=== PATIENT | female | born 1995 | race Caucasian/White ===

== ENCOUNTER 2018-07-06 23:25 | Emergency (ER) | payer MEDICAID, SELFPAY ==
[2018-07-06 23:31] VITALS: BP 117/67; PULSE 110; RESP 18; TEMP 36.7; O2SAT 98
[2018-07-06 23:47] LABS: Bilirubin Negative (Negative); Blood Large (Negative); Clarity Clear; Glucose Negative (Negative); Ketones Negative (Negative); Leukocyte Esterase Small (Negative); Nitrite Positive (Negative); Urobilinogen 0.2 EU/dL (Up TO 0.2); pH 6.5 (5-8)
[2018-07-07 00:01] LABS: *AMPHETAMINES SCREEN URINE Negative (Negative); *BARBITURATES SCREEN URINE Negative (Negative); *BENZODIAZEPINES SCREEN URINE Negative (Negative); Cannabinoids THC POSITIVE (Negative); Cocaine Screen,Urine Negative (Negative); METHADONE URINE SCREEN Negative (Negative); OPIATES URINE SCREEN Negative (Negative)
--- NOTE | 2018-07-07 00:03 | ED.GENADUL_ITS ---
Disposition Clinical Impression: Bacterial vaginosis, Urinary tract infection Condition: Good Instructions: Urinary Tract Infection in Women (ED) Additional Instructions: Please take antibiotics as prescribed. Follow-up with regular doctor for recheck this week. Please do not abuse alcohol. Prescriptions: MetroNIDAZOLE [Flagyl] 500 mg PO BID #14 tab Sulfameth/Trimeth Ds [Bactrim Ds Tablet] 1 each PO BID #14 tab Medical Decision Making - Lab Data Laboratory Results - last 24 hr 07/06/18 07/06/18 07/06/18 23:35 23:35 23:59 WBC RBC Hgb Hct MCV MCH MCHC RDW Plt Count MPV Immature Gran % Neutrophils % Lymphocytes % Monocytes % Eosinophils % Basophils % Absolute Neutrophils Absolute Lymphocytes Absolute Monocytes Absolute Eosinophils Absolute Basophils Sodium 140 Potassium 3.6 Chloride 105 Carbon Dioxide 26.5 Anion Gap 8.5 BUN 8 Creatinine 0.74 Estimated GFR/1.73 m2 >= 60.00 Glucose 109 H Calcium 8.9 Total Bilirubin 0.3 AST 17 ALT 12 Alkaline Phosphatase 86 Total Protein 8.2 Albumin 4.1 TSH 1.67 Beta HCG, Quant Urine Color Straw Urine Clarity Clear Urine pH 6.5 Ur Specific [place] 1.010 Urine Protein Negative Urine Ketones Negative Urine Blood Large H Urine Nitrite Positive H Urine Bilirubin Negative Urine Urobilinogen 0.2 Ur Leukocyte Esterase Small H Urine RBC 20-50 H Urine WBC 5-10 Ur Epithelial Cells Few Urine Crystals Negative Urine Bacteria Many Urine Casts Negative Urine Mucus Negative Urine Other Few trichomonas Ur Culture Indicated? Yes Urine Glucose Negative Salicylates Urine Opiates Screen Negative Urine Methadone Screen Negative Acetaminophen Ur Barbiturates Screen Negative Ur Tricyclics Screen Negative Ur Amphetamines Screen Negative U Benzodiazepines Scrn Negative Urine Cocaine Screen Negative Ur THC Screen Positive Ethyl Alcohol 133.4 07/06/18 07/06/18 07/06/18 23:59 23:59 23:59 WBC 9.42 RBC 4.95 Hgb 14.9 Hct 43.2 MCV 87.3 MCH 30.1 MCHC 34.5 RDW 15.2 H Plt Count 266 MPV 9.7 Immature Gran % 0.2 Neutrophils % 78.7 Lymphocytes % 16.8 Monocytes % 3.5 Eosinophils % 0.5 Basophils % 0.3 Absolute Neutrophils 7.41 H Absolute Lymphocytes 1.58 Absolute Monocytes 0.33 Absolute Eosinophils 0.05 Absolute Basophils 0.03 Sodium Potassium Chloride Carbon Dioxide Anion Gap BUN Creatinine Estimated GFR/1.73 m2 Glucose Calcium Total Bilirubin AST ALT Alkaline Phosphatase Total Protein Albumin TSH Beta HCG, Quant 1 Urine Color Urine Clarity Urine pH Ur Specific [place] Urine Protein Urine Ketones Urine Blood Urine Nitrite Urine Bilirubin Urine Urobilinogen Ur Leukocyte Esterase Urine RBC Urine WBC Ur Epithelial Cells Urine Crystals Urine Bacteria Urine Casts Urine Mucus Urine Other Ur Culture Indicated? Urine Glucose Salicylates 5.2 Urine Opiates Screen Urine Methadone Screen Acetaminophen < 2 L Ur Barbiturates Screen Ur Tricyclics Screen Ur Amphetamines Screen U Benzodiazepines Scrn Urine Cocaine Screen Ur THC Screen Ethyl Alcohol Results reviewed for labs ordered during visit: Yes - Medical Decision Making 22-year-old female presents with mental health worker for suicidality. She is afebrile, at rest her heart rates unremarkable but was slightly elevated at triage. She admits to alcohol use today. Medical screening examination including laboratory analysis performed. Urine positive for nitrites and leukoesterase. Many bacteria. Positive trichomonas. Alcohol 133. CBC unremarkable, chemistries reassuring. Beta hCG quant is 1 ( negative range). Patient will require treatment for UTI and bacterial vaginosis. Will treat with Bactrim and Flagyl. She was observed over approximately 6 hours time, alcohol was metabolized, seen by mental health screeners and plan for safety was established outpatient setting. History of Present Illness - General Chief complaint: PsychEval Stated complaint: EVAL Time Seen by Provider: 07/06/18 23:39 Source: patient, RN notes reviewed Mode of arrival: ambulatory Limitations: no limitations - History of Present Illness Initial comments: Depression: 22-year-old female presents with [facility] services stating that she has had days of active suicidality that is been moderate to severe and associated with depression. Began in the wake of a breakup with her boyfriend. States he has been drinking alcohol including liquor today. She states her last menstrual period was 1 month plus ago. She had outpatient positive test. -: days(s) Quality: other Consistency: constant Improves with: none Worsens with: none Treatments Prior to Arrival: none - Related Data Sertraline [Zoloft] 100 mg PO .QHS 03/02/18 TraZODone [Desyrel] 50 mg PO .QHS 03/02/18 Dicyclomine [Bentyl] 20 mg PO Q6H PRN #10 tab 05/30/18 Promethazine [Phenergan] 25 mg PO Q6H PRN #10 tab 05/30/18 MetroNIDAZOLE [Flagyl] 500 mg PO BID #14 tab 07/07/18 Sulfameth/Trimeth Ds [Bactrim Ds Tablet] 1 each PO BID #14 tab 07/07/18 Allergies Allergy/AdvReac Type Severity Reaction Status Date / Time ibuprofen AdvReac Unknown Hives Unverified 07/06/18 23:46 Review of Systems Other: 8 systems reviewed, otherwise negative Past Medical History - Past Medical History Learning disabilities, wrist fracture with nonunion Surgical history: appendectomy, other (Left wrist) Family history: other (Blood clots) - Social History Alcohol use: none Drug use: marijuana General Exam - General Limitations: no limitations General appearance: alert, in no apparent distress, other (Odor of alcohol) - Head Head exam: Present: atraumatic, normocephalic - Eye Eye exam: Present: PERRL, EOMI - ENT ENT exam: Present: normal exam, normal external ear exam - Neck Neck exam: Present: normal inspection, full ROM. Absent: tenderness - Respiratory Respiratory exam: Present: normal lung sounds bilaterally. Absent: respiratory distress, chest wall tenderness - Cardiovascular Cardiovascular Exam: Present: regular rate, normal rhythm - GI/Abdominal GI/Abdominal exam: Present: soft. Absent: distended, tenderness - Extremities Exam Extremities exam: Present: normal inspection, full ROM, normal capillary refill - Neurological Exam Neurological exam: Present: alert, oriented X3 - Psychiatric Psychiatric exam: Present: flat affect, suicidal ideation - Skin Skin exam: Present: warm, dry, intact Course Vital Signs - 24 hr 07/06/18 23:31 Temperature 36.7 C Pulse 110 H Respiratory 18 Rate Blood Pressure 117/67 Pulse Oximetry 98
[2018-07-07 00:08] LABS: Abs Immature Grans 0.02 k/cumm (0.0-0.09); Absolute Basophil Count 0.03 k/cumm (0.0-0.2); Absolute Eosinophil Count 0.05 k/cumm (0.0-0.7); Absolute Lymphocyte Count 1.58 k/cumm (1.2-3.4); Absolute Monocyte Count 0.33 k/cumm (0.11-0.7); Absolute Neutrophil Count 7.41 k/cumm (1.2-6.7); Basophils % 0.3; Eosinophils % 0.5; HCT 43.2 % (36.0-46.0); HGB 14.9 g/dL (12.0-15.5); Immature Grans % 0.2; Lymphocytes % 16.8; Mean Corp. HGB Concentration 34.5 g/dL (32.0-36.0); Mean Corpuscular Hemoglobin 30.1 pg (27.0-33.0); Mean Corpuscular Volume 87.3 fL (80-95); Mean Platelet Volume 9.7 fL (8.0-11.0); Monocytes % 3.5; Neutrophils % 78.7; Platelet Count 266 x1000/uL (130-400); RBC 4.95 m/cumm (4.00-5.20); RBC Distribution Width 15.2 % (11.7-14.6); White Blood Cell Count 9.42 k/cumm (4.4-10.8)
[2018-07-07 00:11] LABS: Tricyclic Antidepressants Negative (Negative)
[2018-07-07 00:24] LABS: Bacteria Many HPF (Negative); Casts Negative LPF (Negative); Crystals Negative HPF (Negative); Epithelial Cells Few HPF (Negative); Mucus Negative (Negative); RBC 20-50 (0-2)
--- NOTE | 2018-07-07 00:24 | NUR.NOTE ---
Nursing Note: Pt has guardian who is mother, Helen. According to Pat (pt's worker who accompanied into ED), mother has been contacted. She has not yet arrived. Pat states she will leave her phone number for contact in the event that something changes with pt.
[2018-07-07 00:25] LABS: C & S Indicated? Yes
[2018-07-07 00:26] LABS: Salicylate 5.2 mg/dL (2.8-20.0)
[2018-07-07 00:28] LABS: Acetaminophen < 2 ug/mL (10-30)
--- NOTE | 2018-07-07 00:28 | NUR.NOTE ---
Nursing Note: attempted to call both phone numbers listed for mother(guardian) initial phone number answered by female who states this is not a valid number for Helen. Left generic message at second phone number, which was a voicemail with a male's voice recording.
[2018-07-07 00:36] LABS: ALT 12 U/L (12-78); AST 17 U/L (15-37); Albumin 4.1 g/dL (3.4-5.0); Alkaline Phosphatase 86 U/L (46-116); Anion Gap 8.5 mmol/L (3-11); BUN 8 mg/dL (7-18); Bilirubin, Total 0.3 mg/dL (0.2-1.0); CO2 26.5 mmol/L (21.0-32.0); CREATININE 0.74 mg/dL (0.55-1.02); Calcium 8.9 mg/dL (8.5-10.1); Chloride 105 mmol/L (98-107); ETHANOL BLOOD 133.4 mg/dL (<3); Glucose 109 mg/dL (70-100); Potassium 3.6 mmol/L (3.5-5.1); Sodium 140 mmol/L (136-145); TSH 1.67 uIU/mL (0.358-3.74); Total Protein 8.2 g/dL (6.4-8.2)
[2018-07-07 00:53] LABS: HCG Quant, Pregnancy 1 mIU/mL (1-3)
--- NOTE | 2018-07-07 04:31 | NUR.NOTE ---
Nursing Note: mental health worker umer martinez arrived and is in with the pt
[2018-07-07] MEDS: Sulfameth/Trimeth DS TAB 1 TAB PO (04:46)
--- NOTE | 2018-07-07 04:56 | ERMH_ITS ---
Presenting issue: [sucidal ideation] *How did they arrive here at ER and why did they come: [Patient had been drinking brought in by human resources operations manager Pat, she has been saying she wants to , she is suicidal] Precipitating Factors: [patient stated to this clinician it started when her uncle killed himself, she told doctor it was because of breakup with boyfriend.] *Assessment of Safety SI / HI- (Address delusions if pertaining to the SI/ HI) [Patient says she wants to and thinks of it a lot when she is drinking. She states she does not want to kill herself today, she is now sober. She emphatically says she is not going to try to commit suicide today and is safe to go home] Disposition: [] *Behavior: [alert, oriented] *Eye Contact: [good] *Mood: [euthymic] *Affect: [full range] *Appetite: [okay] *Sleep (trouble falling/staying asleep): [no problem] Plan: (please elaborate and include that physician is consulted with plan and/ or placement): [Patient wants to go home and agrees to call if she feels desperately suicidal, however she has an appointment with her therapist Deann Connelyl at noon , she is very happy about that and will talk to her about her feelings. She is a client of [facility] at [facility] and has support. Joselupe Infante from [facility] was contacted and agreed with the plan to call Pat her worker to come and pick her up. ] Provisional Diagnosis:(only if required by physician): [] AXIS 5 Case Handover: Done with ED nurse (name): [] Date & Time [] Huddle: done with ED staff (for boarding clients): [] Yes [x] No Date/Time [] Referral for Case management: Has phone call for introduction been made [] Yes [x] No Referral in EMR: Done and sent? [] Yes [x] NO Clinicians Name and title and Signature: [Katie Nelson, [facility], [facility] Emergency Services Clinician] Make sure that you are photocopying and submitting this to [facility] records dept.to be scanned into chart
[2018-07-07 06:19] VITALS: BP 104/52; PULSE 81; RESP 16; O2SAT 97
== END 2018-07-07 06:22 ==
PROVIDERS: Emergency Provider Emergency Medicine; PCP Internal Medicine
DX: N39.0 Urinary tract infection, site not specified (principal); B96.20 Unspecified Escherichia coli [E. coli] as the cause of diseases classified elsewhere; N76.0 Acute vaginitis; B96.89 Other specified bacterial agents as the cause of diseases classified elsewhere; F32.9 Major depressive disorder, single episode, unspecified; R45.851 Suicidal ideations; F10.129 Alcohol abuse with intoxication, unspecified; Y90.6 Blood alcohol level of 120-199 mg/100 ml
CPT/HCPCS: 80053; 80307; 87077; 99285; 80320; 80329; 81003; 81015; 84443; 84702; 85025; 87086; 87186; 99284

== ENCOUNTER 2018-08-07 18:26 | Emergency (ER) | payer MEDICAID, SELFPAY ==
[2018-08-07 18:36] VITALS: BP 113/59; PULSE 87; RESP 12; TEMP 36.9; O2SAT 96
[2018-08-07 18:52] LABS: Bilirubin Negative (Negative); Blood Small (Negative); Clarity Clear; Glucose Negative (Negative); Ketones Negative (Negative); Leukocyte Esterase Negative (Negative); Nitrite Negative (Negative); Specific Gravity 1.015 (1.005-1.025); pH 7.5 (5-8)
[2018-08-07 19:05] LABS: Epithelial Cells Many HPF (Negative); RBC 0-2 (0-2)
[2018-08-07 19:06] LABS: Bacteria Few HPF (Negative); C & S Indicated? No/Sq. Contamination; Casts Negative LPF (Negative); Mucus Negative (Negative)
[2018-08-07 19:07] LABS: Other Cells Rare Yeast (Negative)
[2018-08-07 20:13] LABS: Abs Immature Grans 0.03 k/cumm (0.0-0.09); Absolute Basophil Count 0.02 k/cumm (0.0-0.2); Absolute Monocyte Count 0.55 k/cumm (0.11-0.7); Basophils % 0.2; Eosinophils % 0.8; HCT 43.6 % (36.0-46.0); HGB 14.9 g/dL (12.0-15.5); Immature Grans % 0.2; Lymphocytes % 11.4; Mean Corp. HGB Concentration 34.2 g/dL (32.0-36.0); Mean Corpuscular Hemoglobin 30.7 pg (27.0-33.0); Mean Corpuscular Volume 89.9 fL (80-95); Monocytes % 4.5; Neutrophils % 82.9; Platelet Count 219 x1000/uL (130-400); RBC 4.85 m/cumm (4.00-5.20); RBC Distribution Width 14.9 % (11.7-14.6)
[2018-08-07 20:47] LABS: ALT 13 U/L (12-78); AST 15 U/L (15-37); Albumin 4.1 g/dL (3.4-5.0); Alkaline Phosphatase 89 U/L (46-116); Anion Gap 8.6 mmol/L (3-11); BUN 3 mg/dL (7-18); Bilirubin, Total 0.4 mg/dL (0.2-1.0); CO2 28.4 mmol/L (21.0-32.0); CREATININE 0.77 mg/dL (0.55-1.02); Chloride 102 mmol/L (98-107); Glucose 78 mg/dL (70-100); Lipase 72 U/L (73-393); Potassium 3.5 mmol/L (3.5-5.1); Sodium 139 mmol/L (136-145)
[2018-08-07 21:23] LABS: Bilirubin Negative (Negative); Blood Negative (Negative); Clarity Clear; Glucose Negative (Negative); Ketones Negative (Negative); Leukocyte Esterase Negative (Negative); Nitrite Negative (Negative); Urobilinogen 0.2 EU/dL (Up TO 0.2)
[2018-08-07] MEDS: Ondansetron 4 MG/2 ML VIAL IVP (21:23)
--- NOTE | 2018-08-07 21:44 | ED.GENADUL_ITS ---
Discharge Plan Disposition Patient Disposition: HOME Condition: Improving Discharge Details Chief Complaint: Abd Prob Clinical Impression: Abdominal pain Primary Care Provider: Marko Shirley ED Provider: Rosa Cortez Home Meds and New Rx's Prescriptions: Continue trazodone 50 MG tablet 50 mg PO .QHS RF: 0 sertraline 100 MG tablet 100 mg PO .QHS RF: 0 Discharge Instructions Instructions: Abdominal Pain (ED) Additional Instructions: Drink at least 6-8 glasses of water to stay well-hydrated Return tomorrow morning for your ultrasound as scheduled you will need an appointment with [facility] for the next day or 2. Return to the emergency department sooner for new or worsening symptom Referrals: [facility] [Provider Group] - 1 day Medical Decision Making Patient presents with periumbilical abdominal. She has had no similar history in the past. States her last bowel movement was. Having some nausea and vomiting. Last menstrual period was 1 month ago. States she is not sexually active. UPT was negative. IV line established routine abdominal workup initiated. Patient given sodium chloride with Zofran [address] abdomen and pelvis ordered. After receiving Zofran and a liter of fluid patient symptoms are improved and almost resolved she has no fevers vital signs are stable she is tolerating p.o.. Her repeat abdominal exam is benign. she is stable for discharge to home and will receive a abdominal pelvic ultrasound tomorrow morning. Case management will schedule follow-up appointment with [facility] hopefully within a day or 2. Imaging Data Radiologic Study: Imaging: CT Scan Lab Data Lab results reviewed: Yes I reviewed the patient's lab results. Patient presents with abdominal pain that started yesterday morning, states her last menstrual period was 1 month ago and that she is due to start, denies fevers states she has had nausea vomiting no diarrhea last bowel movement was today she reported normal bowel. Denies recent sick contacts with similar symptoms. HPI General Date/Time Provider Initiated Documentation: 08/07/18 18:45 . Related Data Home Medications Medication Instructions Recorded Confirmed sertraline 100 mg PO .QHS 03/02/18 08/07/18 trazodone 50 mg PO .QHS 03/02/18 08/07/18 Allergies Allergy/AdvReac Type Severity Reaction Status Date / Time ibuprofen AdvReac Unknown Hives Unverified 08/07/18 18:39 General Stated Complaint: Abd Prob KHARI: 3 Review of Systems Review of Systems All systems reviewed & are unremarkable except as noted in HPI and below Gastrointestinal Reports abdominal pain, Denies change in bowel habits, Reports nausea and Reports vomiting Genitourinary Denies dysuria, Denies pelvic pain and Denies vaginal discharge PFSH Family History Mother H/O blood clots Medical History Fracture of wrist with nonunion Social History Smoking/Tobacco Use Status: Current every day Surgical History Appendectomy (03/03/18) Exam Const General: cooperative, healthy appearing, comfortable and in distress mild Nutritional Appearance: average body habitus Orientation: alert, awake and oriented x3 HENMT Mouth: oral mucosae normal Chest Chest: normal inspection of the chest Resp Auscultation: clear to auscultation bilaterally Cardio Rate: regular rate Rhythm: regular rhythm GI Inspection: normal to inspection Palpation: soft, not firm, no guarding and tender periumbilically Auscultation: normal bowel sounds Skin General skin exam: no rashes or lesions noted Extrem General: normal to inspection and full ROM Course Vital Signs Temperature 36.9 C 08/07/18 18:36 Pulse 87 08/07/18 18:36 Respiratory Rate 12 08/07/18 18:36 Blood Pressure 113/59 L 08/07/18 18:36 Pulse Oximetry 96 08/07/18 18:36 Temperature 36.9 C 08/07/18 18:36 Temperature Source Temporal Artery Scan 08/07/18 18:36 Pulse 87 08/07/18 18:36 Respiratory Rate 12 08/07/18 18:36 Respiratory Effort 08/07/18 20:57 Blood Pressure 113/59 L 08/07/18 18:36 Pulse Oximetry 96 08/07/18 18:36 Oxygen Delivery Method Room Air 08/07/18 18:36 Oxygen Flow Rate 0 08/07/18 18:36 Pain Level 10 08/07/18 18:36 Lab/Test Results Lab/Test Results: Laboratory Tests Range/Units 08/07/18 08/07/18 08/07/18 18:43 20:07 20:07 WBC (4.4-10.8) k/cumm 12.30 H RBC (4.00-5.20) m/cumm 4.85 Hgb (12.0-15.5) g/dL 14.9 Hct (36.0-46.0) % 43.6 MCV (80-95) fL 89.9 MCH (27.0-33.0) pg 30.7 MCHC (32.0-36.0) g/dL 34.2 RDW (11.7-14.6) % 14.9 H Plt Count (130-400) x1000/uL 219 MPV (8.0-11.0) fL 10.0 Immature Gran % 0.2 Neutrophils % 82.9 Lymphocytes % 11.4 Monocytes % 4.5 Eosinophils % 0.8 Basophils % 0.2 Absolute Neutrophils (1.2-6.7) k/cumm 10.20 H Absolute Lymphocytes (1.2-3.4) k/cumm 1.40 Absolute Monocytes (0.11-0.7) k/cumm 0.55 Absolute Eosinophils (0.0-0.7) k/cumm 0.10 Absolute Basophils (0.0-0.2) k/cumm 0.02 Sodium (136-145) mmol/L 139 Potassium (3.5-5.1) mmol/L 3.5 Chloride (98-107) mmol/L 102 Carbon Dioxide (21.0-32.0) mmol/L 28.4 Anion Gap (3-11) mmol/L 8.6 BUN (7-18) mg/dL 3 L Creatinine (0.55-1.02) mg/dL 0.77 Estimated GFR/1.73 m2 (mL/min/1.73m2) >= 60.00 Glucose (70-100) mg/dL 78 Calcium (8.5-10.1) mg/dL 9.0 Total Bilirubin (0.2-1.0) mg/dL 0.4 AST (15-37) U/L 15 ALT (12-78) U/L 13 Alkaline Phosphatase (46-116) U/L 89 Total Protein (6.4-8.2) g/dL 8.0 Albumin (3.4-5.0) g/dL 4.1 Lipase (73-393) U/L 72 L Urine Color (Yellow) Yellow Urine Clarity Clear Urine pH (5-8) 7.5 Ur Specific [place] (1.005-1.025) 1.015 Urine Protein (Negative) mg/dL Negative Urine Ketones (Negative) mg/dL Negative Urine Blood (Negative) Small H Urine Nitrite (Negative) Negative Urine Bilirubin (Negative) Negative Urine Urobilinogen (Up TO 0.2) EU/dL 1.0 H Ur Leukocyte Esterase (Negative) Negative Urine RBC (0-2) 0-2 Urine WBC (0-5) HPF 5-10 Ur Epithelial Cells (Negative) HPF Many Urine Crystals (Negative) HPF Urine Bacteria (Negative) HPF Few Urine Casts (Negative) LPF Negative Urine Mucus (Negative) Negative Urine Other (Negative) Rare yeast Ur Culture Indicated? No/sq. contamination Urine Glucose (Negative) mg/dL Negative Range/Units 08/07/18 21:05 WBC (4.4-10.8) k/cumm RBC (4.00-5.20) m/cumm Hgb (12.0-15.5) g/dL Hct (36.0-46.0) % MCV (80-95) fL MCH (27.0-33.0) pg MCHC (32.0-36.0) g/dL RDW (11.7-14.6) % Plt Count (130-400) x1000/uL MPV (8.0-11.0) fL Immature Gran % Neutrophils % Lymphocytes % Monocytes % Eosinophils % Basophils % Absolute Neutrophils (1.2-6.7) k/cumm Absolute Lymphocytes (1.2-3.4) k/cumm Absolute Monocytes (0.11-0.7) k/cumm Absolute Eosinophils (0.0-0.7) k/cumm Absolute Basophils (0.0-0.2) k/cumm Sodium (136-145) mmol/L Potassium (3.5-5.1) mmol/L Chloride (98-107) mmol/L Carbon Dioxide (21.0-32.0) mmol/L Anion Gap (3-11) mmol/L BUN (7-18) mg/dL Creatinine (0.55-1.02) mg/dL Estimated GFR/1.73 m2 (mL/min/1.73m2) Glucose (70-100) mg/dL Calcium (8.5-10.1) mg/dL Total Bilirubin (0.2-1.0) mg/dL AST (15-37) U/L ALT (12-78) U/L Alkaline Phosphatase (46-116) U/L Total Protein (6.4-8.2) g/dL Albumin (3.4-5.0) g/dL Lipase (73-393) U/L Urine Color (Yellow) Yellow Urine Clarity Clear Urine pH (5-8) 7.0 Ur Specific [place] (1.005-1.025) 1.010 Urine Protein (Negative) mg/dL Negative Urine Ketones (Negative) mg/dL Negative Urine Blood (Negative) Negative Urine Nitrite (Negative) Negative Urine Bilirubin (Negative) Negative Urine Urobilinogen (Up TO 0.2) EU/dL 0.2 Ur Leukocyte Esterase (Negative) Negative Urine RBC (0-2) Urine WBC (0-5) HPF Ur Epithelial Cells (Negative) HPF Urine Crystals (Negative) HPF Urine Bacteria (Negative) HPF Urine Casts (Negative) LPF Urine Mucus (Negative) Urine Other (Negative) Ur Culture Indicated? Urine Glucose (Negative) mg/dL Negative POC- Test(urine) Negative
--- NOTE | 2018-08-07 21:45 | DI.CT_ITS ---
SYMPTOM/DIAGNOSIS: ABDOMINAL PAIN. CT ABDOMEN AND PELVIS: CT scan of the abdomen and pelvis was performed following the uneventful administration of intravenous contrast material. Comparison is 03/02/18 The liver is normal in size. No hepatic mass is seen. The appearance of the intrahepatic bile ducts is unchanged compared to the prior examination. The gallbladder is negative. No extrahepatic biliary ductal dilatation is seen. The portal and superior mesenteric veins are patent. The pancreas, spleen and adrenal glands are unremarkable. The kidneys show normal and symmetric enhancement. There are a few tiny hypodensities seen within the left kidney. They are too small for further characterization but likely reflect cysts.. The urinary bladder is intact and grossly unremarkable. It is underdistended. The reproductive organs are grossly unremarkable. The bowel shows no evidence of obstruction or inflammation. No findings to suggest an acute appendicitis are present. There are clips seen in the right lower quadrant. These appear to represent prior appendectomy that appears to have occurred since the prior examination from 03/02/18. The abdominal aorta is of normal caliber. There is no significant abdominal or pelvic adenopathy or pneumoperitoneum. There is a trace amount of free fluid in the pelvis which is likely physiologic. The bones are intact. IMPRESSION: No evidence of an acute abdomen. 2. Status post appendectomy. 3. Trace amount of free fluid in the pelvis which is likely physiologic.
[2018-08-07] MEDS: Omnipaque 350 MG/ML 100 ML BTL IJ (21:56)
--- NOTE | 2018-08-07 22:19 | DI.VRAD_ITS ---
EXAM: CT Abdomen and Pelvis With Intravenous Contrast EXAM DATE/TIME: 08/07/2018 8:02 PM CLINICAL HISTORY: 22 years old, female; Pain; Abdominal pain; Localized; Lower TECHNIQUE: Axial computed tomography images of the abdomen and pelvis with intravenous contrast. Coronal and sagittal reformatted images were created and reviewed. CONTRAST: 69 ml of Omnipaque 350 administered intravenously. COMPARISON: CT ABD PELVIS WITH CONTRAST 03/02/2018 5:25 PM FINDINGS: Lower thorax: Gas in the distal esophagus which can be seen with reflux. ABDOMEN: Liver: Intrahepatic ductal dilation versus periportal edema. Vague hypodensity near the falciform ligament. This is a good location for focal fat or a portal perfusion defect. Diagnosis can be confirmed with MRI. Gallbladder and bile ducts: No gallstones. Pancreas: Normal. No ductal dilation. Spleen: Normal. No splenomegaly. Adrenals: Normal. No mass. Kidneys and ureters: Too small to characterize hypodensities in the left kidney. No hydronephrosis. Stomach and bowel: There is wall prominence to the proximal stomach which can be seen secondary to under distention or gastritis in the appropriate clinical setting. Evaluation of the bowel is limited secondary to the lack of oral contrast. No evidence of bowel obstruction. Appendix: The appendix is not clearly seen. There is suture material in the right lower quadrant of the abdomen. Finding should be correlated with any history of appendectomy. PELVIS: Bladder: There is urinary bladder wall thickening which can be seen with infection or under distention. Reproductive: The uterus is present. A small amount of fluid is noted adjacent to the right uterus, series 5 image 65. The margins are somewhat rounded. A component of loculation is not excluded. There are fluid-filled structures in the region of the right adnexa favored to be related to fluid-filled loops of bowel. Superimposed abscesses or ovarian lesions would be difficult to exclude, given the lack of oral contrast. Given these findings, there may be a gynecologic source for the patient's pain. Ultrasound would be beneficial. ABDOMEN and PELVIS: Intraperitoneal space: No free air. Bones/joints: No acute fracture. No dislocation. Soft tissues: Unremarkable. Vasculature: Normal. No abdominal aortic aneurysm. Lymph nodes: Normal. No enlarged lymph nodes. IMPRESSION: 1.A small amount of fluid is noted adjacent to the right uterus. The margins are somewhat rounded. A component of loculation is not excluded. There are fluid-filled structures in the region of the right adnexa favored to be related to fluid-filled loops of bowel. Superimposed abscesses or ovarian lesions would be difficult to exclude, given the lack of oral contrast. Given these findings, there may be a gynecologic source for the patient's pain. Ultrasound would be beneficial. 2. Urinary bladder wall prominence which can be seen with infection or under distention. 3. The appendix is not clearly seen. There is suture material in the right lower quadrant of the abdomen. Finding should be correlated with any history of appendectomy. Other findings as above. Dictated and Authenticated by: Sally Giraldo MD. Ordering:SANDRA TORRES MD
[2018-08-07 23:02] VITALS: BP 119/72; PULSE 94; RESP 16; O2SAT 96
--- NOTE | 2018-08-08 09:15 | PDOC.ERCMPRO ---
Care Management Progress Note 08/08/18-Pt seen on 08/07/18 for abdominal pain by Rafael Cortez NP. F/U ultrasound request faxed to [facility].
== END 2018-08-07 23:01 | disposition home or self-care (01) ==
PROVIDERS: Emergency Provider Nurse Practitioner Acute Care; PCP Internal Medicine
DX: R10.33 Periumbilical pain (principal); R11.2 Nausea with vomiting, unspecified
CPT/HCPCS: 36415; 80053; 81025; 83690; 96374; 99285; 74177; 81003; 81015; 85025; 99284; J2405; J3490

== ENCOUNTER 2018-08-08 14:47 | Emergency (ER) | payer MEDICAID, SELFPAY ==
[2018-08-08 15:00] VITALS: BP 123/70; PULSE 98; RESP 16; TEMP 37.2; O2SAT 96
--- NOTE | 2018-08-08 16:38 | DI.US_ITS ---
SYMPTOM/DIAGNOSIS: LLQ PAIN PELVIC ULTRASOUND: 08/08 Pelvic ultrasound was performed transabdominally and transvaginally. Please see the accompanying data sheet for measurements of the pelvic structures. Minimal quantity of free pelvic fluid is noted which is nonspecific. Uterus and ovaries are unremarkable in appearance with a normal ovarian follicular appearance bilaterally. There is unremarkable vascular flow of the ovaries identified on Doppler evaluation. Limited scanning of the kidneys is unremarkable. CONCLUSION: Negative pelvic ultrasound.
[2018-08-08 17:04] LABS: Abs Immature Grans 0.01 k/cumm (0.0-0.09); Absolute Basophil Count 0.01 k/cumm (0.0-0.2); Absolute Eosinophil Count 0.12 k/cumm (0.0-0.7); Absolute Lymphocyte Count 0.83 k/cumm (1.2-3.4); Absolute Monocyte Count 0.46 k/cumm (0.11-0.7); Absolute Neutrophil Count 8.11 k/cumm (1.2-6.7); Basophils % 0.1; Eosinophils % 1.3; HGB 13.8 g/dL (12.0-15.5); Immature Grans % 0.1; Lactate-non-spesis 0.7 mmol/L (0.6-1.4); Lymphocytes % 8.7; Mean Corp. HGB Concentration 34.5 g/dL (32.0-36.0); Mean Corpuscular Hemoglobin 30.8 pg (27.0-33.0); Mean Corpuscular Volume 89.3 fL (80-95); Mean Platelet Volume 9.8 fL (8.0-11.0); Monocytes % 4.8; Platelet Count 186 x1000/uL (130-400); RBC 4.48 m/cumm (4.00-5.20); RBC Distribution Width 14.7 % (11.7-14.6); White Blood Cell Count 9.54 k/cumm (4.4-10.8)
[2018-08-08 17:19] LABS: ALT 13 U/L (12-78); AST 12 U/L (15-37); Albumin 3.7 g/dL (3.4-5.0); Alkaline Phosphatase 87 U/L (46-116); Anion Gap 9.4 mmol/L (3-11); BUN 3 mg/dL (7-18); Bilirubin, Total 0.4 mg/dL (0.2-1.0); CO2 27.6 mmol/L (21.0-32.0); CREATININE 0.72 mg/dL (0.55-1.02); Calcium 8.9 mg/dL (8.5-10.1); Chloride 103 mmol/L (98-107); Glucose 80 mg/dL (70-100); Potassium 3.4 mmol/L (3.5-5.1); Sodium 140 mmol/L (136-145); Total Protein 7.4 g/dL (6.4-8.2)
[2018-08-08] MEDS: Ketorolac 15 MG/ML VIAL IVP (17:37)
--- NOTE | 2018-08-08 18:15 | DI.VRAD_ITS ---
EXAM: US Pelvis Complete, Transabdominal US Pelvis, Transvaginal CLINICAL HISTORY: 22 years old, female; Pain; Abdominal pain; Left lower quadrant TECHNIQUE: Real-time transabdominal and transvaginal pelvic ultrasound (complete) with image documentation. Transvaginal imaging was used for better evaluation of the endometrium and adnexa. COMPARISON: CT ABDOMEN PELVIS W 08/07/2018 9:26 PM FINDINGS: Uterus/cervix: Uterus 7.2 x 1.9x 3.5 cm. Endometrium 1.3 mm. No myometrial mass. Right ovary: Right ovary 2.9 x 1.8 x 2.2 cm Peak systolic velocity right ovary 15 cm/s Normal blood flow. Left ovary: Left ovary 2.7 x 1.7 x 2.4 cm Peak systolic velocity left ovary 15 cm/s Normal blood flow. Free fluid: No free fluid. Bladder: Prevoid bladder volume 388 cubic centimeters Other findings: Right kidney 10.7 cm. No hydronephrosis Left kidney 10.1 cm. No hydronephrosis IMPRESSION: No acute findings. No evidence of torsion Dictated and Authenticated by: Luke Blackwell MD. Ordering:MOUNIKA STYLES MD
--- NOTE | 2018-08-08 18:41 | ED.GENADUL_ITS ---
Discharge Plan Disposition Patient Disposition: HOME Condition: Improving Discharge Details Chief Complaint: Abd Prob Clinical Impression: Abdominal pain Primary Care Provider: Marko Shirley ED Provider: Juvenal Walter Home Meds and New Rx's Prescriptions: New acetaminophen [Tylenol 8 Hour] 650 mg tablet extended release 650 mg PO Q8H PRN (Reason: pain) Qty: 30 RF: 0 Continue trazodone 50 MG tablet 50 mg PO .QHS RF: 0 sertraline 100 MG tablet 100 mg PO .QHS RF: 0 Discharge Instructions Instructions: Abdominal Pain (ED) Additional Instructions: Return to the emergency department for any new or worsening symptoms including high fevers, persistent vomiting, or further concerns. Otherwise take medication as prescribed and follow-up with your primary care provider if not improving next week. Referrals: Marko Shirley [Primary Care Provider] - 1 week (if not improving) Discharge Data Discharge Date/Time-TO BE ENTERED AT DEPARTURE: 08/08/18 19:18 Medical Decision Making Patient presenting to the emergency department for chief complaint of abdominal pain. Patient was seen yesterday in the emergency department and had full workup with no acute findings noted but concern for possible ovarian cyst. Patient states today pain became severe she had an episode of nausea with the discomfort. Patient appears uncomfortable but in no acute signs of distress but physical exam shows some significant left lower quadrant tenderness on exam. There is concern for possible ovarian torsion or cyst otherwise review of previous records shows that she had no acute findings. Plan to do ultrasound imaging of female anatomy along with labs. Pending results patient ordered IV fluids and ketorolac. Review of labs shows improvement of findings compared to yesterday's labs and ultrasound imaging shows no acute abnormalities noted including no torsion significant ovarian cyst. Patient was reassessed and stated improvement of symptoms after receiving Toradol. Patient has had no signs of vomiting and due to otherwise unremarkable labs I feel that she is able to be safely discharged to follow-up with her primary care provider next week. After discussion of diagnosis and plan of care patient is no further needs, questions, or concerns and states clear understanding to return to the emergency department for any worsening symptoms. HPI General Mode of arrival: ambulatory . Date/Time Provider Initiated Documentation: 08/08/18 16:21 . Limitations to Documentation: no limitations . Information obtained by: patient, RN notes reviewed and old records reviewed . History of Present Illness 22 year old F presents to the emergency department with the chief complaint of abd pain, described as severe and similar to prior episodes, with intensity rated at 9. Quality is described as sharp, and is localized to the abdomen. Patient started experiencing this day(s) (2) and it has been constant. No relieving factors improve symptom(s), No exacerbating factors reported . Patient did receive the following treatments prior to arrival, none Related Data Home Medications Medication Instructions Recorded Confirmed sertraline 100 mg PO .QHS 03/02/18 08/08/18 trazodone 50 mg PO .QHS 03/02/18 08/08/18 acetaminophen [Tylenol 8 Hour] 650 mg PO Q8H PRN #30 tab 08/08/18 Previous Rx's Medication Instructions Recorded acetaminophen [Tylenol 8 Hour] 650 mg PO Q8H PRN #30 tab 08/08/18 Allergies Allergy/AdvReac Type Severity Reaction Status Date / Time ibuprofen AdvReac Unknown Hives Unverified 08/08/18 15:21 General Stated Complaint: Abd Prob KHARI: 3 Review of Systems Constitutional Denies chills, Denies fever(s), Denies headache(s) and Reports poor appetite ENT Denies headache(s) Cardiovascular Denies chest pain and Denies dyspnea Respiratory Denies dyspnea Gastrointestinal Reports as per HPI, Reports abdominal pain, Denies melena, Denies change in bowel habits, Denies constipation, Denies diarrhea, Reports nausea and Denies vomiting Genitourinary Denies hematuria, Denies urinary incontinence, Denies urinary hesitancy and Denies urinary urgency Integumentary/Breasts Denies rash Neurologic Denies headache(s) PFSH Family History Mother H/O blood clots Medical History Fracture of wrist with nonunion Social History Smoking/Tobacco Use Status: Current every day Surgical History Appendectomy (03/03/18) Exam Const General: cooperative Orientation: alert, awake and oriented x3 Resp Effort & Inspection: normal respiratory effort and able to speak in complete sentences Auscultation: clear to auscultation bilaterally Cardio Rate: regular rate Rhythm: regular rhythm Heart Sounds: S1 normal and S2 normal GI Palpation: soft, no hepatosplenomegaly, not firm, guarding in the LLQ, no masses , no pulsatile masses, not rigid, no splenomegaly and tender in the LLQ; not at McBurney's point, Hogan's sign negative and Rovsing's sign negative Auscultation: normal bowel sounds Back/Spine/Pelvis Back: no CVA tenderness Neuro General: alert, awake, oriented x3, gait normal and moves all extremities Course Vital Signs Temperature 37.2 C 08/08/18 15:00 Pulse 98 H 08/08/18 15:00 Respiratory Rate 16 08/08/18 15:00 Blood Pressure 123/70 08/08/18 15:00 Pulse Oximetry 96 08/08/18 15:00 Temperature 37.2 C 08/08/18 15:00 Temperature Source Skin 08/08/18 15:00 Pulse 98 H 08/08/18 15:00 Respiratory Rate 16 08/08/18 15:00 Respiratory Effort 08/08/18 15:19 Blood Pressure 123/70 08/08/18 15:00 Pulse Oximetry 96 08/08/18 15:00 Oxygen Delivery Method Room Air 08/08/18 15:00 Oxygen Flow Rate 0 08/08/18 15:00 Pain Level 10 08/08/18 15:00 Comment 08/08/18 15:00 Lab/Test Results Lab/Test Results: Laboratory Tests Range/Units 08/08/18 08/08/18 08/08/18 16:56 16:56 16:56 WBC (4.4-10.8) k/cumm 9.54 RBC (4.00-5.20) m/cumm 4.48 Hgb (12.0-15.5) g/dL 13.8 Hct (36.0-46.0) % 40.0 MCV (80-95) fL 89.3 MCH (27.0-33.0) pg 30.8 MCHC (32.0-36.0) g/dL 34.5 RDW (11.7-14.6) % 14.7 H Plt Count (130-400) x1000/uL 186 MPV (8.0-11.0) fL 9.8 Immature Gran % 0.1 Neutrophils % 85.0 Lymphocytes % 8.7 Monocytes % 4.8 Eosinophils % 1.3 Basophils % 0.1 Absolute Neutrophils (1.2-6.7) k/cumm 8.11 H Absolute Lymphocytes (1.2-3.4) k/cumm 0.83 L Absolute Monocytes (0.11-0.7) k/cumm 0.46 Absolute Eosinophils (0.0-0.7) k/cumm 0.12 Absolute Basophils (0.0-0.2) k/cumm 0.01 Sodium (136-145) mmol/L 140 Potassium (3.5-5.1) mmol/L 3.4 L Chloride (98-107) mmol/L 103 Carbon Dioxide (21.0-32.0) mmol/L 27.6 Anion Gap (3-11) mmol/L 9.4 BUN (7-18) mg/dL 3 L Creatinine (0.55-1.02) mg/dL 0.72 Estimated GFR/1.73 m2 (mL/min/1.73m2) >= 60.00 Glucose (70-100) mg/dL 80 Lactate (0.6-1.4) mmol/L 0.7 Calcium (8.5-10.1) mg/dL 8.9 Total Bilirubin (0.2-1.0) mg/dL 0.4 AST (15-37) U/L 12 L ALT (12-78) U/L 13 Alkaline Phosphatase (46-116) U/L 87 Total Protein (6.4-8.2) g/dL 7.4 Albumin (3.4-5.0) g/dL 3.7
[2018-08-08 20:53] VITALS: BP 116/68; PULSE 94; RESP 18; TEMP 37; O2SAT 98
== END 2018-08-08 19:18 | disposition home or self-care (01) ==
PROVIDERS: Emergency Provider Nurse Practitioner Family; PCP Internal Medicine
DX: R10.32 Left lower quadrant pain (principal)
CPT/HCPCS: 76770; 80053; 81025; 96374; 99284; 76830; 76856; 83605; 85025; J1885

== ENCOUNTER 2018-08-14 13:38 | Outpatient (CLI) | payer MEDICAID, SELFPAY ==
--- NOTE | 2018-08-14 13:24 | DI.RAD_ITS ---
SYMPTOMS/DIAGNOSIS: PAIN RIGHT WRIST: Three views. No bone or joint abnormality is identified. The soft tissues are unremarkable. IMPRESSION: No acute abnormality.
== END 2018-08-14 13:58 ==
PROVIDERS: PCP Internal Medicine; Visit Provider Orthopaedic Surgery
DX: M25.531 Pain in right wrist (principal)
CPT/HCPCS: 73110

== ENCOUNTER 2018-09-12 09:33 | Outpatient (CLI) | payer MEDICAID, SELFPAY | END 2018-09-12 09:53 | PROVIDERS: PCP Internal Medicine; Visit Provider Orthopaedic Surgery | DX: M25.531 Pain in right wrist (principal); Z01.818 Encounter for other preprocedural examination ==

== ENCOUNTER 2018-09-17 10:52 | Day surgery (SDC) | payer MEDICAID, SELFPAY ==
--- NOTE | 2018-09-12 10:27 | HPE_ITS ---
Date of service: 09/12/18 Time of Service: 10:24 Assessment and Plan (1) Right wrist pain: Current visit: Yes Status: Acute The patient will undergo a right ulna shortening osteotomy under general anesthesia on 09/17/2018 for her distal ulna impaction syndrome to relieve pressure on her triangular fibrocartilage. The basic anatomy and surgical procedure are reviewed with Corrie as well as complications and typical follow-up course all questions are answered. History of Present Illness Chief Complaint: ulnar wrist pain Narrative: corrie relates a 1 month history of atraumatic right ulnar lateral wrist discomfort that has not been relieved with conservative management of bracing, and Depo-Medrol injection and Tylenol, Aleve. Following the injection in the office she initially noted good relief of her discomfort but this was very short-lived and did not provide any long-lasting effect. 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 Surgical intervention was recommended to relieve her pain Pertinent Surgical Information Denies previous medical history of: stroke, TIA, SD, use of sublingual nitroglycerin, GERD, seizures, diabetes, thyroid disease, sleep apnea, liver disease, hepatitis, hematologic disorders Denies previous complications from surgery or anesthesic agents with respect to high fever, prolonged vomiting and difficulty waking up Review of Systems Review of Systems All systems reviewed & are unremarkable except as noted in HPI and below Constitutional Denies fever(s) and Denies headache(s) ENT Denies headache(s) Cardiovascular Denies chest pain, Denies chest pain with activity, Denies palpitations, Denies dyspnea on exertion, Denies orthopnea and Denies paroxysmal nocturnal dyspnea Respiratory Denies dyspnea on exertion and Denies wheezing Gastrointestinal Denies abdominal pain, Denies melena, Denies hematochezia, Denies nausea and Denies vomiting Genitourinary Denies hematuria, Denies urinary frequency and Denies dysuria Comments: Denies burning sensation with urination Musculoskeletal Reports as per HPI Neurologic Denies headache(s) Psychiatric Denies anxiety and Denies depression Endocrine Denies palpitations Comments: Denies any unplanned weight changes Allergic/Immunologic Denies wheezing Meds Home Medications Medication Instructions Recorded Confirmed Type sertraline 100 mg PO .QHS 03/02/18 09/12/18 History trazodone 50 mg PO .QHS 03/02/18 09/12/18 History Depo-Medrol 40 mg/mL suspension 40 mg IU ONCE #1 ml NS 08/14/18 09/11/18 Clinic for injection acetaminophen 325 mg PO Q6H PRN 09/12/18 09/12/18 History Allergies Allergy/AdvReac Type Severity Reaction Status Date / Time ibuprofen AdvReac Unknown Hives Unverified 09/12/18 10:16 Exam Const General: cooperative HENMT Throat: posterior oropharynx normal Eyes General: appearance normal, both eyes and all related structures Conjunctivae: conjunctivae normal Sclera: sclerae normal Neck Neck: no JVD Carotids: normal carotid upstroke and no bruits Resp Effort & Inspection: normal respiratory effort and able to speak in complete sentences Auscultation: clear to auscultation bilaterally, no rales, no rhonchi and no wheezes Cardio Rate: regular rate Heart Sounds: S1 normal, S2 normal and no murmurs Bruits: no abdominal aortic bruits Other: Patient has focal tenderness over her distal ulna with pain on radial and ulnar deviation of her wrist. Palpating her triangular fibrocartilage region causes the pain she has been troubled by. She only has minimal pain with wrist dorsiflexion.her little finger extensor tendon is intact. she has normal neurovascular status distally. GI Palpation: soft and no hepatosplenomegaly Auscultation: normal bowel sounds General: No CVA tenderness Extrem General: no pedal edema Other: Normal sensation to light touch No web space cracks or splits noted
[2018-09-17] VITALS (8 sets, daily range): BP systolic 96–120; BP diastolic 55–72; PULSE 87–104; RESP 15–23; TEMP 36.4–36.8; O2SAT 95–98
--- NOTE | 2018-09-17 10:46 | DI.RAD_ITS ---
SYMPTOM/DIAGNOSIS: RT DISTAL ULNA IMPACTION SYNDROME, PAIN RIGHT WRIST: The images were obtained through a fiberglass splint and reveal a fracture of the distal ulna. Plate and compression screw device in place. There is excellent apposition and alignment at the fracture site. No previous images were extant at the time of this interpretation.
[2018-09-17] MEDS: Lactated Ringers 1,000 ML 80 ML IV (12:02)
--- NOTE | 2018-09-17 14:40 | PDOC.DSDIS_ITS ---
Discharge Plan Disposition Patient Disposition: HOME Condition: Good Discharge Details Reason For Visit: ULNAR WRIST PAIN (R) Attending Provider: Jose Fierro Primary Care Provider: Marko Shirley Home Meds and New Rx's Prescriptions: New hydrocodone-acetaminophen 5-325 mg tablet 1 tab PO Q6H PRN (Reason: pain) Qty: 20 RF: 0 Continue methylprednisolone acetate [Depo-Medrol] 40 mg/mL suspension 40 mg IU ONCE Qty: 1 RF: 0 trazodone 50 MG tablet 50 mg PO .QHS RF: 0 sertraline 100 MG tablet 100 mg PO .QHS RF: 0 acetaminophen 325 mg Capsule 325 mg PO Q6H PRNRF: 0 Discharge Instructions Additional Instructions: Elevate R hand and forearm above heart level as much as possible for next 2 days. Wiggle fingers R hand 10 times/hour when awake to decrease swelling and pain. Keep dressings and splint dry and in place until return to 's office. Return to 's office in 2 weeks. Take tylenol for mild pain. For worse pain, take 1 hydrocodone tab, if needed , every 6 hours. Referrals: Jose Fierro MD [ [facility] STAFF PHYSICIAN] - (f/u in 2 weeks.) Equipment/Supplies: Splint Activity:: Activity as Tolerated Remove Dressings/Wound Care:: Do Not Remove Shower/Bathe:: Cover Diet:: As Tolerated Discharge Orders Discharge Orders: Discharge Order (Routine); Ordered 09/17/18 Ordered By: Jose Fierro DS: Diagnosis Discharge Diagnosis (1) Right wrist pain: Start date: 09/17/18 Start time: 14:40 Status: Acute
[2018-09-17] MEDS: fentaNYL 100 MCG/2 ML VIAL IVP (15:30)
[2018-09-17] MEDS: oxyCODONE-CR 10 MG TABCR PO (16:14)
--- NOTE | 2018-09-17 18:06 | ROE_ITS ---
DATE OF PROCEDURE: September 17, 2018 PREOPERATIVE DIAGNOSIS: Right ulnar impaction syndrome. POSTOPERATIVE DIAGNOSIS: Right ulnar impaction syndrome. PROCEDURE: Right ulnar shortening. SURGEON: Jose Fierro M.D. BRAKE PRESS OPERATOR: Sabina Shay PA-C ANESTHESIA: General. 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 S he developed pain on the ulnar side of her wrist basically over the triangular fiber cartilage in her left wrist. X-rays revealed an ulnar plus variant with the ulna being at least 3 to 4 mm longer joshua n the distal radius. In addition, clinical examination showed localized pain just distal to the ulna over the triangular fiber cartilage in a visible prominence of the right distal ulna that is not see n on the left side. In addition, the left side had an ulnar neutral variance. Because of failure to improve with conservative treatment including splinting, surgery was recommended. The risks and co mplications of the procedure were explained to the patient in detail preoperatively. The procedure r ecommended was an ulnar shortening which would level the wrist joint and alleviate the stress on the triangular fiber cartilage. The risks and complications of the surgery were also explained to her mo ther in detail. PROCEDURE: The patient was taken to the Operating Room on 09/17/18. She was placed supine on the ope rating table and a general anesthetic was administered. A proximal tourniquet was applied to the rig ht upper arm and then the right hand, wrist, and forearm were prepped and draped free in the usual st erile fashion. Under proximal tourniquet control, a longitudinal incision was made in the interval b etween the extensor carpi ulnaris and flexor carpi ulnaris. The incision was carried down through th e fascia and the ulnar side of the ulna was clearly exposed. A step cut osteotomy was performed. Af ter the step cut was completed, I resected 3 mm from each of the steps. I approximated the shortened step cut now and fixed it with a 3.5-mm screw using the lag technique. I then applied a volar 7-hol d one-third tubular plate as a neutralization plate to the ulna with 3 holes proximal to the osteotom y site and 3 holes distal to the osteotomy site. The plate was secured with appropriate length self- tapping 3.5 cortical screws. The most distal hole, however, was filled with a 3.5 locking screw. The wound was irrigated with saline solution. The wound margins were infiltrated with 0.5% Marcaine with epinephrine solution for postoperative analgesia. The fascia was approximated with interrupted [id number] sutures of #3-0 Vicryl suture and there was good coverage of the plate. The skin and subcu were then approximated with tension-relieving sutures of the near-far far-near type of #3-0 ny qing interrupted. The wound was dressed with Xeroform gauze, sterile gauze 4x4s, covered with an ABD pad, and it was wrapped with a 4-inch Intersorb bandage. The tourniquet was released and I applied a well-molded fiberglass volar wrist splint held in place with a 3-inch Matteo bandage. The patient carin rated the procedure well. Her anesthesia was reversed without complication. She was discharged to [facility] Room in good condition. The patient was later discharged home from the Day Surgery Unit when fully recovered from her general anesthesia. She was given printed instructions instructing her to try to elevate her right hand and forearm above heart level as much as possible for the next two days. She was encouraged to wiggle h er fingers 10 times an hour while awake to prevent swelling and pain. She is to keep the dressings a nd splint intact and dry until she follows up in Dr. Fierro's office in two weeks. She will take Tyl enol for mild pain and is given a prescription for breakthrough pain of hydrocodone/APAP 5 mg/325 mg, 1 tablet every 6 hours as needed.
== END 2018-09-17 16:52 | disposition home or self-care (01) ==
PROVIDERS: PCP Internal Medicine; Visit Provider Orthopaedic Surgery
PROC: (CPT 25390; principal; 2018-09-17 13:00)
DX: M25.831 Other specified joint disorders, right wrist (principal); M25.531 Pain in right wrist
CPT/HCPCS: 25390; 73110; J0690; J1100; J2250; J2405; J3010; L3650

== ENCOUNTER 2018-09-30 10:44 | Outpatient (CLI) | payer MEDICAID, SELFPAY ==
--- NOTE | 2018-09-30 10:41 | DI.RAD_ITS ---
SYMPTOMS/DIAGNOSIS: CHECK HARDWARE FROM ULNAR SHORTENING RIGHT WRIST: When compared with the prior in fiberglass splint images of 09/17/2018, there has been no interval change in the status of the osteotomy site or orthopedic hardware.
== END 2018-09-30 11:04 ==
PROVIDERS: PCP Internal Medicine; Visit Provider Orthopaedic Surgery
DX: M25.531 Pain in right wrist (principal); Z47.89 Encounter for other orthopedic aftercare
CPT/HCPCS: 73100

== ENCOUNTER 2018-11-26 09:34 | Outpatient (CLI) | payer MEDICAID, SELFPAY ==
--- NOTE | 2018-11-26 09:29 | DI.RAD_ITS ---
SYMPTOMS/DIAGNOSIS: SURGERY F/U RIGHT WRIST: Comparison is made with [id number]. There is now a fracture extending through the mid portion of the fixation plate along the distal ulna near the fracture site. This was not present on the previous exam. The fracture shows more displacement when compared with the previous exam. The distal radius and carpal bones remain intact. IMPRESSION: Fracture through the fixation plate of the distal ulna.
== END 2018-11-26 09:54 ==
PROVIDERS: PCP Internal Medicine; Visit Provider Physician Assistant Surgical
DX: S52.201K Unspecified fracture of shaft of right ulna, subsequent encounter for closed fracture with nonunion (principal)
CPT/HCPCS: 73100

== ENCOUNTER 2018-12-06 09:47 | Emergency (ER) | payer MEDICAID, SELFPAY ==
[2018-12-06 09:51] VITALS: BP 105/63; PULSE 80; RESP 16; TEMP 37.1; O2SAT 96
--- NOTE | 2018-12-06 10:49 | DI.RAD_ITS ---
SYMPTOM/DIAGNOSIS: PAIN, PRIOR FIXATION RIGHT WRIST: Comparison is made with 26 November 2018. Again noted is a fracture through the distal ulna involving the fixation plate. There is no change in alignment. No new fractures are identified.
--- NOTE | 2018-12-06 10:51 | ED.GENADUL_ITS ---
Discharge Plan Disposition Patient Disposition: HOME Discharge Details Chief Complaint: Orthopedic Clinical Impression: Nonunion fracture of right ulna Primary Care Provider: Marko Shirley ED Provider: Emil Schaefer Home Meds and New Rx's Prescriptions: Continued trazodone 50 MG tablet 50 mg PO .QHS RF: 0 sertraline 100 MG tablet 100 mg PO .QHS RF: 0 acetaminophen 325 mg Capsule 650 mg PO Q6H PRNRF: 0 Discharge Instructions Additional Instructions: Keep splint intact. No use of right arm until cleared. Follow-up with orthopedics. Call on Saturday. Take Tylenol for pain. Dose according to label. Return to the ER for any worsening or new concerning symptoms. Referrals: Jose Fierro MD [ [facility] STAFF PHYSICIAN] - Discharge Data Discharge Date/Time-TO BE ENTERED AT DEPARTURE: 12/06/18 12:00 Medical Decision Making 10:50 -- Patient seen initially in results waiting room but preferred to wait for private room. Patient roomed and evaluated. 23yo f here status post 09/17/2018 ulnar shortening/ulnar osteotomy for ulnar impaction syndrome after conservative measures did not relieve her wrist pain, complicated by plate fracture postpooeratively, here with persistent pain in the medial distal forearm. No signs of infection. Consider malunion. Plan for xray. 11:35 --x-ray of the wrist reviewed and interpreted by radiology: Plate and screws along the distal half of the ulna. The plate is fractured. There is discontinuity in the ulna at the level of the fracture plate consistent with unhealed fracture. The current fracture is at the site of the prior fracture. There is some distraction of the fracture fragments 2-3 mm. Patient advised to use her velcro wrist splint. She has been wearing this intermittently and loosely. I assisted her in reapplying this and secured it. Patient was advised to call Dr. Fierro's office to follow-up. HPI General Mode of arrival: ambulatory . Date/Time Provider Initiated Documentation: 12/06/18 10:21 . Limitations to Documentation: no limitations . Information obtained by: patient . HPI Narrative: 23-year-old female presents with chief complaint of right forearm pain. Patient underwent shortening osteotomy on 09/17/2018. In follow-up she was noted to have fracture of her plate. She notes that she has had pain in her forearm for the past 3-4 weeks. Pain is persistent. Worse with use of her arm. No associated numbness or weakness. No warmth or increased swelling. No fevers. Related Data Home Medications Medication Instructions Recorded Confirmed sertraline 100 mg PO .QHS 03/02/18 12/09/18 trazodone 50 mg PO .QHS 03/02/18 12/09/18 acetaminophen 650 mg PO Q6H PRN 09/12/18 12/09/18 Allergies Allergy/AdvReac Type Severity Reaction Status Date / Time ibuprofen Allergy Unknown Hives Unverified 12/09/18 09:48 General Stated Complaint: Orthopedic KHARI: 3 Review of Systems Musculoskeletal Reports as per HPI Integumentary/Breasts Denies rash Neurologic Denies sensory deficit and Denies paresthesias [facility] Medical History Depression (Chronic) Fracture of wrist with nonunion Surgical History History of laparoscopic appendectomy (Resolved) Appendectomy (Inactive 03/03/18) Family History Mother H/O blood clots Social History Smoking/Tobacco Use Status: Current every day alcohol intake: never substance use type: does not use Exam Const General: cooperative and no acute distress Cardio Rate: regular rate and not tachycardic Rhythm: regular rhythm Skin General skin exam: no rashes or lesions noted Other: surgical scar rt forearm healed Neuro General: alert, awake, oriented x3 and tone normal Motor: other (full strategic accounts 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) Sensory Exam: no sensory deficits noted (distal RUE) Extrem General: no edema Right upper extremity: wrist Details: tenderness Location: of the distal ulna, normal ROM (wrist and elbow), normal vascular exam and radial pulse present Details: 2+; no swelling and no unusual warmth Course Vital Signs Temperature 37.1 C 12/06/18 09:51 Pulse 80 12/06/18 09:51 Respiratory Rate 16 12/06/18 09:51 Blood Pressure 105/63 12/06/18 09:51 Pulse Oximetry 96 12/06/18 09:51 Temperature 37.1 C 12/06/18 09:51 Temperature Source Skin 12/06/18 09:51 Pulse 80 12/06/18 09:51 Respiratory Rate 16 12/06/18 09:51 Blood Pressure 105/63 12/06/18 09:51 Blood Pressure Position Sitting 12/06/18 09:51 Pulse Oximetry 96 12/06/18 09:51 Oxygen Delivery Method Room Air 12/06/18 09:51 Oxygen Flow Rate 0 12/06/18 09:51 Pain Level 10 12/06/18 09:51
--- NOTE | 2018-12-06 11:29 | DI.VRAD_ITS ---
Addendum created by Luke Blackwell MD on 12/06/2018 11:31:55 AM EST Addendum: The current fracture is at the site of the prior fracture. There is some distraction of the fracture fragments 2-3 mm. Initial report created on 12/06/2018 11:29:44 AM EST EXAM: XR Right Wrist Complete, 3 or more Views EXAM DATE/TIME: 12/06/2018 10:49 AM CLINICAL HISTORY: 23 years old, female; Pain; Wrist; Right; Prior surgery; Surgery date: 1-6 months; Surgery type: Fixation surgery on RT wrist in september 2018; Patient HX: Right wrist pain. TECHNIQUE: XR Right wrist 3 or more views. COMPARISON: CR XR wrist RT limited 09/30/2018 10:54 AM FINDINGS: Bones/joints: Plate and screws along the distal half of the ulna. The plate is fractured. There is a discontinuity in the ulna at the level of the fractured plate consistent with unhealed fracture. Soft tissues: Soft tissue swelling IMPRESSION: Plate and screws along the distal half of the ulna. The plate is fractured. There is a discontinuity in the ulna at the level of the fractured plate consistent with unhealed fracture. Dictated and Authenticated by: Luke Blackwell MD. Ordering:DURAN Stein MD
== END 2018-12-06 12:00 | disposition home or self-care (01) ==
PROVIDERS: Emergency Provider Student in an Organized Health Care Education/Training Program; PCP Internal Medicine
DX: S52.601G Unspecified fracture of lower end of right ulna, subsequent encounter for closed fracture with delayed healing (principal); X58.XXXA Exposure to other specified factors, initial encounter
CPT/HCPCS: 81025; 99283; 73110

== ENCOUNTER 2019-01-13 10:57 | Outpatient (CLI) | payer MEDICAID, SELFPAY ==
--- NOTE | 2019-01-13 10:43 | DI.RAD_ITS ---
SYMPTOMS/DIAGNOSIS: S/P ULNAR IMPACTION, F/U OF BROKEN PLATE RIGHT FOREARM: Comparison is made with [id number]. The fracture through the previously noted fixation plate of the distal ulna and fracture alignment appear unchanged.
== END 2019-01-13 11:17 ==
PROVIDERS: PCP Internal Medicine; Visit Provider Physician Assistant
DX: S52.601G Unspecified fracture of lower end of right ulna, subsequent encounter for closed fracture with delayed healing (principal)
CPT/HCPCS: 73090

== ENCOUNTER 2019-01-22 11:55 | Outpatient (CLI) | payer MEDICAID, SELFPAY ==
--- NOTE | 2019-01-22 13:19 | HPE_ITS ---
Assessment and Plan (1) Ulnar impaction syndrome: Current visit: Yes Status: Acute Plan: Educated patient on surgery including surgical technique, benefits and risks including but not limited to risk of infection, blood, damage to soft tissue/nerve/blood vessels with patient in detail. After discussion patient gives verbal understanding of risks and elects to proceed with surgery. Patient had opportunity to have questions answered to her satisfaction. Patient will contact office if issues arise, she will be scheduled for repair of nonunion osteotomy of right ulna with Dr. Fierro on 01/26/19. Qualifiers: Laterality: right Qualified Code(s): M25.831 - Other specified joint disorders, right wrist History of Present Illness Chief Complaint: ulnar wrist pain Narrative: Ms. 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 Fierro. Patient is status post right ulnar shortening on 09/17/18 for right ulnar impaction syndrome. She had been doing well post-operatively and denied known trauma to her right arm. Unfortunately, on x-rays taken on 11/26/18 it was noted that Corrie had broken the plate over the ulna osteotomy site. 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 Fierro recommended surgical intervention and patient elected to proceed. Pertinent Surgical Information Denies any changes in her medical history since her history and physical completed on 09/12/18 except for the addition of her recent right ulna shortening on 09/17/18. Denies prior complications from surgery or anesthesia. Review of Systems Cardiovascular Denies chest pain, Denies rapid heart rate, Denies irregular heart rhythm, Denies dyspnea, Denies dyspnea on exertion and Denies slow heart rate Respiratory Denies cough, Denies dyspnea, Denies dyspnea on exertion and Denies wheezing Gastrointestinal Denies abdominal pain, Denies melena, Denies hematochezia, Denies constipation, Denies diarrhea, Denies nausea and Denies vomiting Genitourinary Denies hematuria and Denies dysuria Musculoskeletal Reports as per HPI, Denies numbness and Denies tingling Neurologic Denies numbness and Denies tingling Psychiatric Reports depression Allergic/Immunologic Denies wheezing PFSH Medical History Depression (Chronic) Right wrist pain (Acute) Surgical History Ulnar impaction syndrome (Acute) History of laparoscopic appendectomy (Resolved) Appendectomy (Inactive 03/03/18) Social History Smoking/Tobacco Use Status: Current every day Tobacco: How many years used: 11 Alcohol Intake: never Drug use: Daily Substance use type: marijuana Do you feel safe in your relationship?: Yes Meds Home Medications Medication Instructions Recorded Confirmed Type sertraline 100 mg PO .QHS 03/02/18 01/22/19 History trazodone 100 mg PO .QHS 03/02/18 01/22/19 History acetaminophen 650 mg PO Q6H PRN 09/12/18 01/22/19 History Allergies Allergy/AdvReac Type Severity Reaction Status Date / Time ibuprofen Allergy Unknown Hives Unverified 01/22/19 12:12 Exam Const General: cooperative and no acute distress HENMT Head: normal to inspection, normocephalic and atraumatic General nose exam: external nose normal and no nasal discharge Teeth and gingiva: poor dentition Resp Effort & Inspection: normal respiratory effort and able to speak in complete sentences Auscultation: clear to auscultation bilaterally, no rales, no rhonchi and no wheezes Cardio Heart Sounds: S1 normal, S2 normal and no murmurs Pulses: radial pulses present bilaterally Skin General skin exam: no rashes or lesions noted Extrem Other: Right wrist examination: Well-healed surgical incision is noted along ulnar aspect of right wrist. No tenderness to palpation over incision. Skin is without signs of rashes, erythema, calor or lesions. Active range of motion of wrist is intact in dorsiflexion and palmar flexion. Range of motion does not elicit discomfort. Sensation to light touch is intact in ulnar, radial and median nerve distribution.
== END 2019-01-22 12:15 ==
PROVIDERS: PCP Pediatrics; Visit Provider Orthopaedic Surgery
DX: Z01.818 Encounter for other preprocedural examination (principal)
CPT/HCPCS: NC

== ENCOUNTER 2019-01-26 06:12 | Day surgery (SDC) | payer MEDICAID, SELFPAY ==
[2019-01-26] VITALS (8 sets, daily range): BP systolic 102–128; BP diastolic 60–78; PULSE 80–98; RESP 13–16; TEMP 35.8–37.1; O2SAT 94–98
[2019-01-26] MEDS: Lactated Ringers 1,000 ML 80 ML IV ×2 (06:50→09:25)
--- NOTE | 2019-01-26 07:08 | DI.RAD_ITS ---
SYMPTOMS/DIAGNOSIS: NONUNION OSTEOTOMY, RIGHT ULNA RIGHT ELBOW: Fluoroscopy Time: 24.0 sec,.53 mGy Fluoroscopy was utilized by Dr. Fierro in the Operating Room. The previously noted fractured sideplate and screws have been removed. There is a new sideplate and screws seen transfixing the osteotomy of the distal right ulna. Please refer to the procedure report for complete details. RIGHT FOREARM: Two views. Comparison is 01/13/19. Since the prior examination, the broken sideplate and screw set has been replaced. There is now a sideplate and screw transfixing the osteotomy of the distal right ulna. The orthopedic hardware appears in good position. Alignment of the ulna appears anatomic.
--- NOTE | 2019-01-26 09:22 | W.PM.DSUDISC ---
Discharge Plan Disposition Patient Disposition: HOME Condition: Good Discharge Details Reason For Visit: Repair non-union R ulna Attending Provider: Jose Fierro Primary Care Provider: Avis Britton Home Meds and New Rx's Prescriptions: New hydrocodone-acetaminophen [Vicodin] 5-300 mg tablet 1 tab PO Q4H PRN (Reason: pain) Qty: 20 RF: 0 No Action trazodone 50 MG tablet 100 mg PO .QHS RF: 0 sertraline 100 MG tablet 100 mg PO .QHS RF: 0 acetaminophen 325 mg Capsule 650 mg PO Q6H PRNRF: 0 Discharge Instructions Additional Instructions: Elevate R forearm above heart level as much as possible over next 48-72 hours. Wiggle fingers R hand 10 times/hour when awake to prevent swelling. KEEP DRESSINGS AND SPLINT DRY AND IN PLACE UNTIL RETURN. Return in 2 weeks to 's office. Take tylenol for mild pain. Take vicodin (hydrocodone) for breakthru pain, if needed. Referrals: Jose Fierro MD [ [facility] STAFF PHYSICIAN] - (f/u in 2 weeks.) Equipment/Supplies: Splint Activity:: Activity as Tolerated Remove Dressings/Wound Care:: Do Not Remove Shower/Bathe:: Cover Diet:: As Tolerated Discharge Orders Discharge Orders: Discharge Order (Routine); Ordered 01/26/19 Ordered By: Jose Fierro DS: Diagnosis Discharge Diagnosis (1) Ulnar impaction syndrome: Status: Acute
[2019-01-26] MEDS: fentaNYL 100 MCG/2 ML VIAL IVP (10:35)
[2019-01-26] MEDS: oxyCODONE-CR 10 MG TABCR PO (11:44)
--- NOTE | 2019-01-26 12:04 | ROE_ITS ---
DATE OF PROCEDURE: January 26, 2019 PREOPERATIVE DIAGNOSIS: Non-union right ulnar osteotomy with broken plate. POSTOPERATIVE DIAGNOSIS: Same. PROCEDURE: Removal of broken plate right ulna. Repair of the ulnar shaft non-union with internal fi xation using a LCP 3.5 plate. ANESTHESIA: General, Noel Bhandari CRNA SURGEON: Jose Fierro M.D. CENTRAL OFFICE MAINTAINER: Bowen Pennington PA-C INDICATIONS: This is a 23-year-old white female who had an ulnar-shortening osteotomy for distal uln ar impaction syndrome on 09/17/18. She subsequently went on to a non-union and the plate broke at the osteotomy site. I attempted to treat her non-operatively with casting. I applied two different jass ts and she got both casts wet and removed the casts. I felt that immobilization was not a working st rategy. I thought the only way to treat this is to remove the one-third tubular plate and apply a mo re sturdy, 3.5 LCP plate to immobilize the osteotomy and hopefully get it to heal. The risks and the complications of the procedure were explained to the patient in detail preoperatively. PROCEDURE: The patient was taken to the Operating Room on 01/26/19. She was placed supine on the ope rating table and a general anesthetic was administered. A proximal tourniquet was applied to the rig ht upper arm, and the right hand, wrist and forearm to the elbow were prepped and draped free in the usual sterile fashion. Under proximal tourniquet control, an incision was made in line with the old scar and extended proxim ally about a centimeter to a centimeter and a half. The incision was carried down to the fascia; the fascia was incised. The extensor carpi ulnaris tendon was retracted dorsally. An incision was made directly onto the fibrous tissue covering the plate. The plate was exposed and the screws and broke n plate were removed. The osteotomy was reduced and an 8-hole, 3.5 LCP plate was applied. Applicati on was aided by use of the C-arm. Good firm fixation of the osteotomy was obtained. I then packed t he non-union site with [place] Demineralized Bone Matrix material. The wound margins were infiltrate d with 0.5% Marcaine with an epinephrine solution. The fascia was closed over the plate with interru pted #2-0 Vicryl sutures. The subcu was approximated with interrupted #2-0 Vicryl sutures. The skin edges were approximated with interrupted #4-0 Nylon sutures. Sterile dressings were applied of Xero form gauze, sterile gauze 4x4's, an ABD pad and wrapped with a Kerlix bandage and then a short-arm ul jeffrey gutter splint of fiberglass cast material was applied with a 3-inch Matteo bandage. The tourniquet was released prior to skin closure. All bleeders were cauterized and a dry wound was obtained prior to closure. The patient tolerated the procedure well. Blood loss was minimal. The patient's anest hesia was reversed without complications. She was discharged to the recovery room in good condition. The patient was discharged home from the Day Surgery Unit when fully recovered from her general anest hesia. She was given instructions to keep her dressings and splint dry and intact until she follows up in my office in two weeks. She is advised to elevate her right forearm above heart level as much as possible for the next 48 to 72 hours. She is encouraged to wiggle her fingers ten times an hour w hile awake to prevent swelling. She will take Tylenol for mild pain and for breakthrough pain she wi ll take Hydrocodone with APAP 5/300 mg one p.o. q4h p.r.n.
== END 2019-01-26 12:35 | disposition home or self-care (01) ==
PROVIDERS: PCP Pediatrics; Visit Provider Orthopaedic Surgery
PROC: (CPT 25400; principal; 2019-01-26 07:30)
DX: T84.112A Breakdown (mechanical) of internal fixation device of bone of right forearm, initial encounter (principal); Y83.8 Other surgical procedures as the cause of abnormal reaction of the patient, or of later complication, without mention of misadventure at the time of the procedure
CPT/HCPCS: 25400; 20680; C1713; 81025; 73070; 73090; J0690; J1100; J2405; J3010

== ENCOUNTER 2019-02-10 10:18 | Outpatient (CLI) | payer MEDICAID, SELFPAY ==
--- NOTE | 2019-02-10 10:04 | DI.RAD_ITS ---
SYMPTOMS/DIAGNOSIS: F/U ORIF RIGHT FOREARM: The out of cast examination today reveals no appreciable interval change. A plate and screw device transfixing the osteotomy site in the distal ulna is again noted. The alignment of the ulna remains excellent with plate and screw fixation device in place.
== END 2019-02-10 10:38 ==
PROVIDERS: PCP Pediatrics; Visit Provider Orthopaedic Surgery
DX: S52.601D Unspecified fracture of lower end of right ulna, subsequent encounter for closed fracture with routine healing (principal)
CPT/HCPCS: 73090

== ENCOUNTER 2019-03-10 09:26 | Outpatient (CLI) | payer MEDICAID, SELFPAY ==
--- NOTE | 2019-03-10 08:54 | DI.RAD_ITS ---
SYMPTOMS/DIAGNOSIS: F/U REPAIR OF NONUNION OSTEOTOMY OF RT ULNA RIGHT FOREARM: Three views. Comparison 02/10/19. Post surgical changes are again seen in the distal right ulna. The osteotomy site appears stable compared to the examination from 02/10/19. There is a sideplate and screws seen transfixing the osteotomy site.
== END 2019-03-10 09:46 ==
PROVIDERS: PCP Pediatrics; Visit Provider Physician Assistant
DX: S52.601D Unspecified fracture of lower end of right ulna, subsequent encounter for closed fracture with routine healing (principal); Z47.89 Encounter for other orthopedic aftercare
CPT/HCPCS: 73090

== ENCOUNTER 2019-03-22 14:41 | Emergency (ER) | payer MEDICAID, SELFPAY ==
[2019-03-22 14:45] VITALS: BP 126/73; PULSE 75; RESP 12; TEMP 36.7; O2SAT 94
--- NOTE | 2019-03-22 14:54 | ED.GENADUL_ITS ---
Discharge Plan Disposition Patient Disposition: HOME Condition: Good Discharge Details Chief Complaint: Nausea/Vomit/Diar Clinical Impression: Morning sickness, UTI (urinary tract infection) Primary Care Provider: Avis Britton ED Provider: Rashid Miranda Home Meds and New Rx's Prescriptions: New cephalexin [Keflex] 500 mg capsule 500 mg PO QID 7 Days Qty: 28 RF: 0 PNV #[id number] acid-omega3 30 mg iron-10 mg iron-1 mg capsule 1 cap PO DAILY Qty: 100 RF: 3 No Action trazodone 50 MG tablet 100 mg PO .QHS RF: 0 sertraline 100 MG tablet 100 mg PO .QHS RF: 0 acetaminophen 325 mg Capsule 650 mg PO Q6H PRNRF: 0 Discharge Instructions Instructions: Nausea and Vomiting in (ED), Urinary Tract Infection in Women (ED) Additional Instructions: Please take the antibiotic as directed. Please follow-up promptly with OB. We will schedule a follow-up for you. Please take the vitamin daily as directed. Please consider stopping your sertraline and trazodone after weighing the risks and benefits with your OB doctor as this can be potentially teratogenic in the third trimester. You are currently in the first trimester. Referrals: Avis Britton [Primary Care Provider] - Medical Decision Making This is a pleasant 23-year-old female who presents with one small episode of vomiting daily for the last 4 weeks. She denies any abdominal pain, cramps, vaginal discharge, or other complaints. She is having regular bowel movements with no diarrhea. She denies any fever. Exam demonstrates a nontender unremarkable apple abdomen with no evidence of an acute abdominal process requiring prompt surgical management or imaging. No epigastric pain. She did eat earlier today at [facility] and has had no pain or discomfort whatsoever. No flank or CVA tenderness. We did get a urinalysis, which is positive for , as well as evidence of urinary tract infection. No clinical evidence of pyelonephritis with reassuring vital signs no other abnormalities. Bedside vaginal ultrasound demonstrates evidence of in place intrauterine fetus with a heart rate around 160. Notably small on exam. Suspect less than 9 weeks. The patient feels well, recommend continued hydration at home as she shows no signs of active dehydration here. We will give her first dose of Keflex here, we will give her multivitamin here. We will schedule follow-up with the clinic. With her excellent ability to tolerate p.o. I do not think that any antiemetics are indicated at this time. Diagnosis morning sickness and urinary tract infection. We will be holding Mylanta and Zofran. These medications will not be given. HPI General Date/Time Provider Initiated Documentation: 03/22/19 14:42 . HPI Narrative: This is a 23-year-old female with no significant past medical history except for depression, chronic right wrist pain with multiple surgeries, who presents today for evaluation of vomiting. Patient states that for the last 4 weeks she has had one episode of vomiting per day. She describes it as yellow vomitus, she denies any hematemesis. She eats regularly, and has regular bowel movements. It is a small amount of emesis that she has. She recently ate [employer] earlier this afternoon and had no difficulty with this and has not vomited at all today. She denies any knowledge of . She denies any vaginal discharge. She denies any abdominal pain, crampiness, or discomfort. She denies any hematuria, increased urinary frequency or dysuria. She has no other complaints at this time. Past surgical history is positive for appendectomy. Related Data Home Medications Medication Instructions Recorded Confirmed sertraline 100 mg PO .QHS 03/02/18 03/22/19 trazodone 100 mg PO .QHS 03/02/18 03/22/19 acetaminophen 650 mg PO Q6H PRN 09/12/18 03/22/19 PNV #[id number] acid-omega3 1 cap PO DAILY #100 cap 03/22/19 cephalexin [Keflex] 500 mg PO QID 7 Days #28 cap 03/22/19 Previous Rx's Medication Instructions Recorded PNV #[id number] acid-omega3 1 cap PO DAILY #100 cap 03/22/19 cephalexin [Keflex] 500 mg PO QID 7 Days #28 cap 03/22/19 Allergies Allergy/AdvReac Type Severity Reaction Status Date / Time ibuprofen Allergy Unknown Hives, Unverified 03/22/19 14:49 throat swelling General Stated Complaint: Nausea/Vomit/Diar KHARI: 3 Review of Systems Review of Systems All systems reviewed & are unremarkable except as noted in HPI and below PFSH Social History Smoking/Tobacco Use Status: Current every day Tobacco: How many years used: 11 Alcohol Intake: never Drug use: Daily Substance use type: marijuana What type of physical activity do you participate in: walking Do you feel safe at home: Yes Do you feel safe in your relationship?: Yes Exam Narrative Exam Narrative: 1.Const: Well-nourished, Well-developed, appearing stated age 2.Eyes: PERRL, no conjunctival injection, and symmetrical lids. 3.ENT: Atraumatic external nose and ears. Moist MM. Neck: Symmetric, trachea midline, No thyromegaly. 4.CVS: +S1/S2, No murmurs or gallops. Peripheral pulses 2+ and equal in all extremities. Brisk capillary refill in all extremities. 5.RESP: Unlabored respiratory effort. Clear to auscultation bilaterally. No wheezes rales or rhonchi 6.GI: Soft, Nontender/Nondistended, No hepatosplenomegaly. No guarding or r ebound. No pain at McBurney's point, negative Hogan sign 7.MSK: Normocephalic/Atraumatic, Extremities w/o deformity or ttp No cyanosis or clubbing, Normal movement of all extremities 8.Skin: Warm, Dry. No rashes or lesions. 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 Sensation grossly intact, no focal neurologic deficits. 10.Psych: (AAO) x3. Appropriate mood and affect Course Vital Signs Temperature 36.7 C 03/22/19 14:45 Pulse 75 03/22/19 14:45 Respiratory Rate 12 03/22/19 14:45 Blood Pressure 126/73 03/22/19 14:45 Pulse Oximetry 94 L 03/22/19 14:45 Temperature 36.7 C 03/22/19 14:45 Temperature Source Temporal Artery Scan 03/22/19 14:45 Pulse 75 03/22/19 14:45 Respiratory Rate 12 03/22/19 14:45 Respiratory Effort Non-Labored 03/22/19 14:50 Blood Pressure 126/73 03/22/19 14:45 Blood Pressure Position Sitting 03/22/19 14:45 Pulse Oximetry 94 L 03/22/19 14:45 Oxygen Delivery Method Room Air 03/22/19 14:45 Oxygen Flow Rate 0 03/22/19 14:45 Pain Level 0 03/22/19 14:45
[2019-03-22 15:05] LABS: Bilirubin Negative (Negative); Blood Negative (Negative); Clarity Cloudy; Glucose Negative (Negative); Ketones Negative (Negative); Leukocyte Esterase Small (Negative); Nitrite Positive (Negative); Urobilinogen 0.2 EU/dL (Up TO 0.2); pH 6.5 (5-8)
[2019-03-22 15:14] LABS: Epithelial Cells Many HPF (Negative); WBC 20-50 HPF (0-5)
[2019-03-22 15:15] LABS: Bacteria Many HPF (Negative); C & S Indicated? No/Sq. Contamination; Casts Negative LPF (Negative); Crystals Negative HPF (Negative); Mucus Negative (Negative); Other Cells Mod Transitional (Negative)
[2019-03-22] MEDS: Cephalexin 500 MG CAP PO (15:22)
[2019-03-22] MEDS: Prenatal Multivitamin w/CA,FE TAB 1 TAB PO (15:35)
--- NOTE | 2019-03-23 08:48 | PDOC.ERCMPRO ---
Care Management Progress Note 03/23-Dr. Miranda requested assistance with a [facility] f/u in 1-2 weeks for . Referral faxed to [facility] this am.
== END 2019-03-22 15:44 | disposition home or self-care (01) ==
PROVIDERS: Emergency Provider Student in an Organized Health Care Education/Training Program; PCP Pediatrics
DX: O21.0 Mild hyperemesis gravidarum (principal); O23.40 Unspecified infection of urinary tract in pregnancy, unspecified trimester
CPT/HCPCS: 81025; 99283; 81003; 81015

== ENCOUNTER 2019-04-16 16:42 | Outpatient (REF) | payer MEDICAID, SELFPAY ==
[2019-04-16 18:21] LABS: *AMPHETAMINES SCREEN URINE Negative (Negative); *BARBITURATES SCREEN URINE Negative (Negative); *BENZODIAZEPINES SCREEN URINE Negative (Negative); Cannabinoids THC POSITIVE (Negative); Cocaine Screen,Urine Negative (Negative); METHADONE URINE SCREEN Negative (Negative); OPIATES URINE SCREEN Negative (Negative)
[2019-04-16 18:35] LABS: Tricyclic Antidepressants Negative (Negative)
[2019-04-20 13:54] LABS: Chlamydia Result Negative; GC Result Negative; Specimen Description URINE
[2019-04-21 14:44] LABS: Buprenorphine Negative; Norbuprenorphine Negative
== END 2019-04-16 17:02 ==
LOC: LBN 16:42
PROVIDERS: PCP Pediatrics; Visit Provider Advanced Practice Midwife
DX: Z34.91 Encounter for supervision of normal pregnancy, unspecified, first trimester (principal); Z11.3 Encounter for screening for infections with a predominantly sexual mode of transmission
CPT/HCPCS: 80307; 87491; 87591

== ENCOUNTER 2019-04-21 10:41 | Outpatient (CLI) | payer MEDICAID, SELFPAY ==
--- NOTE | 2019-04-21 10:34 | DI.RAD_ITS ---
SYMPTOM/DIAGNOSIS: F/U ORIF RIGHT FOREARM.: When compared with the previous examination of 03/10/2019 there has been no interval change. The patient is status post repair of a nonunion osteotomy of the right ulna. Again noted is the plate and screw device transfixing the osteotomy site.
== END 2019-04-21 11:01 ==
PROVIDERS: PCP Pediatrics; Visit Provider Orthopaedic Surgery
DX: S52.601D Unspecified fracture of lower end of right ulna, subsequent encounter for closed fracture with routine healing (principal); Z47.89 Encounter for other orthopedic aftercare
CPT/HCPCS: 73090

== ENCOUNTER 2019-06-12 13:39 | Outpatient (CLI) | payer MEDICAID, SELFPAY ==
[2019-06-12 14:11] LABS: Abs Immature Grans 0.04 k/cumm (0.0-0.09); Absolute Basophil Count 0.02 k/cumm (0.0-0.2); Absolute Eosinophil Count 0.15 k/cumm (0.0-0.7); Absolute Lymphocyte Count 2.11 k/cumm (1.2-3.4); Absolute Monocyte Count 0.54 k/cumm (0.11-0.7); Basophils % 0.2; Eosinophils % 1.3; HCT 36.6 % (36.0-46.0); HGB 12.9 g/dL (12.0-15.5); Immature Grans % 0.4; Lymphocytes % 18.7; Mean Corp. HGB Concentration 35.2 g/dL (32.0-36.0); Mean Corpuscular Hemoglobin 30.7 pg (27.0-33.0); Mean Corpuscular Volume 87.1 fL (80-95); Mean Platelet Volume 10.5 fL (8.0-11.0); Monocytes % 4.8; Neutrophils % 74.6; Platelet Count 211 x1000/uL (130-400); RBC Distribution Width 13.9 % (11.7-14.6); White Blood Cell Count 11.26 k/cumm (4.4-10.8)
[2019-06-12 15:03] LABS: TSH (W/Ref FT4) 1.16 uIU/mL (0.36-3.74)
[2019-06-13 10:20] LABS: HIV-1/2 Ag & Ab Screen Negative (NEGAT)
[2019-06-13 16:21] LABS: Syphilis Total Ab w/Reflex Nonreactive (Nonreactive)
[2019-06-15 10:43] LABS: Hepatitis C Ab w Rflx HCV PCR Negative (NEGAT)
[2019-06-15 11:46] LABS: Varicella IgG Antibody Positive
[2019-06-15 12:17] LABS: Hepatitis B Surface Ag Negative (NEGAT)
[2019-06-15 12:19] LABS: Rubella IgG Ab (UVM) Positive
[2019-06-15 13:05] LABS: AFP 49.2 ng/mL; Calculated age at EDD 26 years; GA used in risk estimate Scan estimate; INHIBIN 319 pg/mL; IVF Pregnancy No; Initial or repeat testing Initial testing; Insulin dependent diabetes No; Maternal Weight 134 lbs; Maternal Weight 61 kg; Number of Fetuses 1; Physician Phone Number 802-748-7300; Prev Down(T21)/Trisomy Pregnan No; Prev Pregnancy w/NTD No; RECOMMENDED FOLLOW UP None.; Results Summary Normal risk; hCG, TOTAL 25.2 IU/mL; hCG, TOTAL MoM 1.24 MoM; uE3 2.09 ng/mL
== END 2019-06-12 13:59 ==
PROVIDERS: Advanced Practice Midwife; PCP Pediatrics; Visit Provider Obstetrics & Gynecology
DX: Z34.91 Encounter for supervision of normal pregnancy, unspecified, first trimester (principal); Z11.4 Encounter for screening for human immunodeficiency virus [HIV]; Z11.59 Encounter for screening for other viral diseases; Z01.84 Encounter for antibody response examination; Z36.89 Encounter for other specified antenatal screening
CPT/HCPCS: 81511; 86787; 86803; 86850; 86900; 86901; 87340; 87389; 84443; 85025; 86762; 86780

== ENCOUNTER 2019-06-24 07:33 | Outpatient (CLI) | payer MEDICAID, SELFPAY ==
--- NOTE | 2019-06-24 13:40 | DI.US_ITS ---
SYMPTOMS/DIAGNOSIS: SURVEY, Z34.90 OB ULTRASOUND: Predicted Gestational Age: Indication/History: 19+1 Wks Range: 18+1 to 20+1 Prior US done on: Determined by: First US LMP History EDC by prior US: For multiple gestations: Baby PLACENTA: Grade: 0-I Location: X Anterior Posterior PRESENTATION: RT LT LOW LYING PREVIA Cephalic X Trans (Head RT LT ) Varied Breech BIOMETRY: Anatomy Identified: BPD: 43 mm 19+1 wks 4-chamber Heart X Heart Rate 162 BPM HC: 163 mm 19 wks LVOT X Post Fossa X AC: 135 mm 19 wks RVOT X Ventricles X FL: 30 mm 19+1 wks Stomach X Nose X Bladder X Lips X Cisterna Magna: 3.2 mm CI: 84 Kidneys X Palate X Cerebellum: 1.93 cmm 3-vessel cord X Spine X EFW: 272 grms 41% Cord Insertion X NS= not seen Composite Age (US) 19+1 wks Many abnormalities cannot be diagnosed. A normal exam does not exclude congenital abnormality. EDC by US: 11/17/2019 Amniotic Fluid Index: Normal TECH COMMENTS: 0 POUNDS 10 OUNCES RUQ: LUQ: RLQ: LLQ: Total: cm Biophysical Profile: Score 0/2 SERENA (>2cm) Respirations (>30 sec) Body flexion/extension Extremity flexion/extension TOTAL SCORE RADIOLOGIST COMMENTS: The fetus is in cephalic position. The placenta is anterior. The biometric measurements correspond to 19 weeks 1 day and an EDC of November,, consistent with previous dating. No abnormalities are seen. The amniotic fluid amount appears visually normal. IMPRESSION: survey is within normal limits.
== END 2019-06-24 07:53 ==
PROVIDERS: PCP Pediatrics; Visit Provider Obstetrics & Gynecology
DX: Z34.90 Encounter for supervision of normal pregnancy, unspecified, unspecified trimester (principal)
CPT/HCPCS: 76805

== ENCOUNTER 2019-08-28 13:03 | Outpatient (CLI) | payer MEDICAID, SELFPAY ==
[2019-08-28 13:45] LABS: HCT 34.8 % (36.0-46.0); HGB 12.2 g/dL (12.0-15.5); Mean Corp. HGB Concentration 35.1 g/dL (32.0-36.0); Mean Corpuscular Hemoglobin 31.5 pg (27.0-33.0); Mean Corpuscular Volume 89.9 fL (80-95); Mean Platelet Volume 10.3 fL (8.0-11.0); Platelet Count 282 x1000/uL (130-400); RBC 3.87 m/cumm (4.00-5.20); RBC Distribution Width 13.6 % (11.7-14.6); White Blood Cell Count 14.71 k/cumm (4.4-10.8)
[2019-08-28 13:47] LABS: Glucose,1 Hr (Glucola) 125 mg/dL (80-140)
== END 2019-08-28 13:23 ==
PROVIDERS: Obstetrics & Gynecology; PCP Pediatrics; Visit Provider Obstetrics & Gynecology
DX: Z34.92 Encounter for supervision of normal pregnancy, unspecified, second trimester (principal)
CPT/HCPCS: 36415; 82950; 85027

== ENCOUNTER 2019-10-23 17:00 | Outpatient (REF) | payer MEDICAID, SELFPAY ==
[2019-10-23 17:10] LABS: *AMPHETAMINES SCREEN URINE Negative (Negative); *BARBITURATES SCREEN URINE Negative (Negative); *BENZODIAZEPINES SCREEN URINE Negative (Negative); Cannabinoids THC POSITIVE (Negative); Cocaine Screen,Urine Negative (Negative); METHADONE URINE SCREEN Negative (Negative); OPIATES URINE SCREEN Negative (Negative)
[2019-10-23 17:17] LABS: Tricyclic Antidepressants Negative (Negative)
[2019-10-30 08:53] LABS: Buprenorphine Negative; Norbuprenorphine Negative
== END 2019-10-23 17:20 ==
LOC: LBN 17:00
PROVIDERS: PCP Pediatrics; Visit Provider Obstetrics & Gynecology
DX: Z34.93 Encounter for supervision of normal pregnancy, unspecified, third trimester (principal); Z36.85 Encounter for antenatal screening for Streptococcus B
CPT/HCPCS: 80307; 87081

== ENCOUNTER 2019-10-26 00:58 | Outpatient (CLI) | payer MEDICAID, SELFPAY ==
--- NOTE | 2019-10-26 14:54 | DI.US_ITS ---
EXAM: US OB SERENA AND WEIGHT CLINICAL HISTORY: Size less than dates, , Z34.90 TECHNIQUE: Ultrasound performed using standard protocol. COMPARISON: US OB 2-3 trimester from 06/24/2019 FINDINGS: Fetus was in breech position on the current exam. The placenta is anterior and grade 2. The biometr ic measurements correspond to 35 weeks 1 day, which is nearly 2 weeks less than expected based on pre vious dating. The estimated weight is 2627 grams corresponding to the 17th percentile. The am niotic fluid index is 8.8. The skull now has an elongated appearance, which was not noted on the previous exam. The thalami and posterior fossa are not visualized. Limited axial views were performed on today's exam. IMPRESSION: size measuring less than dates. There is abnormal appearance of the head. Further evalu ation brain anatomy is recommended.
== END 2019-10-26 01:18 ==
PROVIDERS: PCP Pediatrics; Visit Provider Obstetrics & Gynecology
DX: O36.5930 Maternal care for other known or suspected poor fetal growth, third trimester, not applicable or unspecified (principal)
CPT/HCPCS: 76816

== ENCOUNTER 2019-11-06 10:45 | Outpatient (CLI) | payer MEDICAID, SELFPAY ==
--- NOTE | 2019-11-06 10:50 | DI.US_ITS ---
EXAM: US OB F/U FACIAL/LVOT/RVOT CLINICAL HISTORY: bladder appears distended on office ultrason Z34.90 TECHNIQUE: Ultrasound performed using standard protocol. COMPARISON: US OB SERENA WEIGHT from 10/26/2019 FINDINGS: Limited 3rd trimester ultrasound was performed. There is visually a normal quantity of amniotic flui d. Placenta is anterior. Fetus is in breech presentation. cardiac activity observed at a rat e of 150 BPM. Urinary bladder is distended containing about 45 cc. Observation over 25 minutes did not show voiding. The kidneys have a normal appearance, there is no hydronephrosis or hydroureter. There is a question of keyhole appearance of urinary bladder and proximal urethra raising the possi bility of posterior urethral valves Findings were discussed with Dr. Root. IMPRESSION:
== END 2019-11-06 11:05 ==
PROVIDERS: PCP Pediatrics; Visit Provider Obstetrics & Gynecology
DX: O32.1XX0 Maternal care for breech presentation, not applicable or unspecified (principal); Z3A.38 38 weeks gestation of pregnancy
CPT/HCPCS: 76815

== ENCOUNTER 2019-11-09 13:36 | Outpatient (CLI) | payer MEDICAID, SELFPAY ==
[2019-11-09 14:46] LABS: HGB 12.4 g/dL (12.0-15.5); Mean Corp. HGB Concentration 34.4 g/dL (32.0-36.0); Mean Platelet Volume 11.1 fL (8.0-11.0); Platelet Count 288 x1000/uL (130-400); RBC 4.14 m/cumm (4.00-5.20); RBC Distribution Width 13.8 % (11.7-14.6); White Blood Cell Count 19.41 k/cumm (4.4-10.8)
== END 2019-11-09 13:56 ==
PROVIDERS: PCP Pediatrics; Visit Provider Obstetrics & Gynecology
DX: O32.1XX0 Maternal care for breech presentation, not applicable or unspecified (principal); Z01.818 Encounter for other preprocedural examination; Z01.812 Encounter for preprocedural laboratory examination
CPT/HCPCS: 36415; 85027; 86850; 86900; 86901

== ENCOUNTER 2019-11-10 06:15 | Inpatient (IN) | payer MEDICAID, SELFPAY ==
[2019-11-10 06:36] VITALS: BP 123/77; PULSE 85; RESP 20; TEMP 36.5; O2SAT 95
[2019-11-10 06:39] VITALS: BP 123/77; PULSE 85; RESP 20; TEMP 36.5; O2SAT 95
[2019-11-10] MEDS: Lactated Ringers 1,000 ML 125 ML IV ×2 (06:55→10:18)
[2019-11-10] MEDS: ceFAZolin 2 GM/50 ML BAG IVPB (07:36)
[2019-11-10] MEDS: Ondansetron 4 MG/2 ML VIAL IVP (10:14)
[2019-11-10] MEDS: Normal Saline Flush 10 ML SYR IV (10:17)
--- NOTE | 2019-11-10 10:24 | W.PM.OP ---
Date of service: 11/10/19 Time of Service: 10:24 Operative Note Operative Note DATE OF PROCEDURE: 11/10/19 PRE-OP DIAGNOSIS: 39 weeks. Breech presentation POST-OP DIAGNOSIS: same PROCEDURE: Primary low transverse section SURGEON: Pascual Root ASSISTING SURGEON: Padmini Ruby ANESTHESIA: spinal ESTIMATED BLOOD LOSS: 500 PATHOLOGY: none sent COMPLICATIONS: None Patient was transported to: floor Patient's condition: stable Findings: 1. Delivered LBM in jon breech presentation Procedure Description: The patient was taken to the operating room and after adequate spinal anesthesia the patient was placed in supine position with a left lateral tilt. The patient was prepped and draped in the usual sterile manner. A Montilla catheter had been placed in the bladder draining clear urine. A Pfannenstiel incision was made with a #10 scalpel and sharp dissection was carried down to the underlying layer of fascia. The fascia was incised in the midline and the incision was carried laterally in either direction with Trotter scissors. The superior and inferior aspects of the fascial incision were dissected off the underlying layer of rectus muscles using both blunt and sharp dissection. The rectus muscles and peritoneum were divided in the midline and the incision was carried superiorly and inferiorly with blunt and sharp dissection. The vesicouterine flap was tented up with pickups and incised sharply with Metzenbaum scissors and the bladder flap was then created digitally. The lower uterine segment was incised in a transverse manner with a scalpel and the incision was carried laterally in direction via stretch. The was found in jon breech presentation and delivered atraumatically. The mouth and nose were suctioned. The cord was clamped and cut and the was handed off to the waiting client services associate. The placenta was manually extracted. The uterus was cleared of all clots and debris. The hysterotomy was closed with a running lock stitch of #1 chromic. A second beginning layer of #1 chromic in a Lambert stitch was used to complete the repair and achieve hemostasis. The vesicouterine flap was reapproximated with a running stitch of 3-0 Vicryl. Excellent hemostasis was noted. The peritoneum was closed with a running stitch of 2-0 Vicryl. Subfascial space was thoroughly inspected and was noted to be hemostatic. The fascia was closed with a running stitch of 0 Vicryl. The subcutaneous tissues were closed with interrupted sutures of 3-0 Vicryl. The skin was closed with a running subcuticular stitch of 4-0 Monocryl. Dermabond was applied. The procedure was concluded at this point. Sponge, lap and needle counts were correct at the conclusion of the procedure. The patient was transferred to the floor in stable condition.
--- NOTE | 2019-11-10 10:29 | W.PM.PROGNOT ---
Date of Service Date of service: 11/10/19 Time of Service: 10:29 Assessment and Plan Assessment and plan (1) Status post primary low transverse section: Status: Acute (2) hemorrhage: Status: Acute Assessment and plan: Patient received tranexamic acid and IV Pitocin. Will add Methergine if needed. Continue to observe. Will obtain CBC Subjective Subjective Interval history since last seen: Called emergently to the bedside to evaluate the patient for hemorrhage. The patient did pass approximately 3 to 400 mL's of blood and clots. On manual evacuation and uterine massage an additional 1 to 200 mL's were passed. The uterus was well contracted. The patient was given 1000 mg of tranexamic acid and IV Pitocin was started. Objective Objective Clinical Data: Vital Signs Temperature 97.7 F 11/10/19 06:39 Pulse 85 11/10/19 06:39 Pulse Rhythm Regular 11/10/19 06:39 Respiratory Rate 20 11/10/19 06:39 Respiratory Effort 11/10/19 06:39 Respiratory Depth Normal 11/10/19 06:39 Respiratory Pattern Normal 11/10/19 06:39 Blood Pressure 123/77 11/10/19 06:39 Pulse Oximetry 95 11/10/19 06:39 Oxygen Delivery Method Room Air 11/10/19 06:39 Oxygen Flow Rate 0 11/10/19 06:39 Pain Level 0 11/10/19 06:39 Intake & Output 11/09/19 11/09/19 11/10/19 11:59 23:59 11:59 Intake Total 927.083 / 927.083 Output Total 600 / 600 Balance 327.083 / 327.083 Weight 158 lb 4.67 oz Intake: IV 927.083 / 927.083 Output: Urine 100 / 100 Estimated Blood Loss 500 / 500 Other: Urine Color Light Mindy Urine Appearance Cloudy
[2019-11-10] MEDS: fentaNYL 100 MCG/2 ML VIAL 50 MCG IVP (10:55)
[2019-11-10] MEDS: Oxytocin 10 UNITS/ML VIAL (11:49)
[2019-11-10 12:17] LABS: HCT 29.7 % (36.0-46.0); Mean Corp. HGB Concentration 33.7 g/dL (32.0-36.0); Mean Corpuscular Hemoglobin 29.5 pg (27.0-33.0); Mean Corpuscular Volume 87.6 fL (80-95); Mean Platelet Volume 10.9 fL (8.0-11.0); Platelet Count 289 x1000/uL (130-400); RBC 3.39 m/cumm (4.00-5.20); RBC Distribution Width 13.6 % (11.7-14.6)
[2019-11-10 12:25] LABS: White Blood Cell Count 26.83 k/cumm (4.4-10.8)
--- NOTE | 2019-11-10 14:13 | DI.RAD_ITS ---
EXAM: XR CHEST 2V PA LATERAL CLINICAL HISTORY: Leukocytosis, cough TECHNIQUE: COMPARISON: No exams were available for comparison FINDINGS: Note is made of small quantity subdiaphragmatic air consistent with patient's history of recent C-se ction. Lungs are clear. No pleural effusion seen. IMPRESSION: No evidence of acute process.
[2019-11-10] MEDS: Acetaminophen 325 MG TAB 650 MG PO ×2 (14:33→20:10)
[2019-11-10] MEDS: Albuterol 2.5 MG/3 ML INH SOLN VIAL UPD (14:43)
[2019-11-10 15:13] VITALS: PULSE 86; RESP 1; RESP 18; RESP 7; O2SAT 98
[2019-11-10 16:03] LABS: Bilirubin Negative (Negative); Blood Small (Negative); Clarity Clear (Clear); Glucose Negative (Negative); Ketones Negative (Negative); Leukocyte Esterase Trace (Negative); Nitrite Negative (Negative); Specific Gravity 1.015 (1.005-1.025); Urobilinogen 0.2 EU/dL (Up TO 0.2)
[2019-11-10 16:16] LABS: Bacteria Negative HPF (Negative); C & S Indicated? Yes; Casts Negative LPF (Negative); Crystals Negative HPF (Negative); Epithelial Cells Few HPF (Negative); Mucus Negative (Negative); Other Cells Moderate Renal (Negative)
[2019-11-10] MEDS: NALBUPHINE 5 MG in Normal Saline 50 ML 100 MG IVPB (16:19)
[2019-11-11] MEDS: oxyCODONE 5 mg/Acetaminophen 325 mg TAB PO ×5 (00:15→18:13)
[2019-11-11] MEDS: Docusate Sodium 100 MG CAP PO (08:47)
[2019-11-11] MEDS: Albuterol 2.5 MG/3 ML INH SOLN VIAL UPD ×2 (08:49→09:16)
[2019-11-11 09:24] VITALS: RESP 1; RESP 16
[2019-11-11 09:54] LABS: Abs Immature Grans 0.05 k/cumm (0.0-0.09); Absolute Basophil Count 0.02 k/cumm (0.0-0.2); Absolute Eosinophil Count 0.17 k/cumm (0.0-0.7); Absolute Lymphocyte Count 3.04 k/cumm (1.2-3.4); Absolute Neutrophil Count 14.43 k/cumm (1.2-6.7); Basophils % 0.1; Eosinophils % 0.9; HCT 26.2 % (36.0-46.0); HGB 8.7 g/dL (12.0-15.5); Immature Grans % 0.3; Lymphocytes % 16.5; Mean Corp. HGB Concentration 33.2 g/dL (32.0-36.0); Mean Corpuscular Hemoglobin 29.6 pg (27.0-33.0); Mean Corpuscular Volume 89.1 fL (80-95); Monocytes % 3.8; Neutrophils % 78.4; Platelet Count 281 x1000/uL (130-400); RBC 2.94 m/cumm (4.00-5.20); RBC Distribution Width 13.9 % (11.7-14.6)
[2019-11-11] MEDS: cefTRIAXone 1 GM VIAL IM (11:29)
[2019-11-12] MEDS: oxyCODONE 5 mg/Acetaminophen 325 mg TAB PO ×5 (00:22→21:15)
[2019-11-12 10:02] LABS: Abs Immature Grans 0.04 k/cumm (0.0-0.09); Absolute Monocyte Count 0.71 k/cumm (0.11-0.7); Absolute Neutrophil Count 10.54 k/cumm (1.2-6.7); Basophils % 0.1; Eosinophils % 1.9; HGB 8.3 g/dL (12.0-15.5); Immature Grans % 0.3; Lymphocytes % 14.2; Mean Corp. HGB Concentration 33.2 g/dL (32.0-36.0); Mean Corpuscular Hemoglobin 29.6 pg (27.0-33.0); Mean Corpuscular Volume 89.3 fL (80-95); Monocytes % 5.3; Neutrophils % 78.2; Platelet Count 308 x1000/uL (130-400); RBC Distribution Width 13.8 % (11.7-14.6); White Blood Cell Count 13.48 k/cumm (4.4-10.8)
[2019-11-12 10:12] LABS: Absolute Basophil Count 0.01 k/cumm (0.0-0.2); Absolute Eosinophil Count 0.26 k/cumm (0.0-0.7); Absolute Lymphocyte Count 1.91 k/cumm (1.2-3.4)
[2019-11-12] MEDS: Docusate Sodium 100 MG CAP PO (10:21)
[2019-11-13] MEDS: oxyCODONE 5 mg/Acetaminophen 325 mg TAB PO ×2 (03:01→08:53)
--- NOTE | 2019-11-13 07:53 | W.PM.DS.N ---
Date of service: 11/13/19 Time of Service: 07:58 DS: Diagnosis Discharge Diagnosis (1) Status post primary low transverse section: Status: Acute (2) hemorrhage: Status: Acute (3) Cognitive developmental delay: Status: Acute (4) Depression: Status: Chronic (5) Unspecified contraceptive management: Status: Acute Discharge Plan Disposition Patient Disposition: [facility] Condition: Fair Discharge Details Reason For Visit: Admit Date/Time: 11/10/19 06:15 Admit Provider: Pascual Root Attending Provider: Pascual Root Primary Care Provider: Avis Britton Hospital Course Hospital Course: Patient was admitting the morning of surgery and underwent the above-stated procedure secondary to a breech presentation not amenable towards an external cephalic version. She had a viable male named Vitor Varela weighing 5 pounds 9 ounces. Apgars 5 at 1 minute 7 at 5 minutes. Her hospital course was complicated by: - a hemorrhage of approximately 1200 cc secondary to uterine atony upon arrival to the center. The atony was treated with uterine massage IV oxytocin and tranexamic acid. Immediate post delivery hemoglobin 10 on day two 8.3. Patient had no further bleeding episodes. -Concern regarding her ability to parent her child independently. She had assistance from [facility] with care and also 03/06 assistance provided by [facility]. She will be discharged to a adult community where assistance is provided. Final disposition of the infant will be made based on close observation over the next several weeks. - Contraception Depo-Provera 50 mg IM administered prior to discharge. -Depression she will continue on current dose of sertraline. Follow-up with Dr. Root in approximately 1.5 weeks Home Meds and New Rx's Prescriptions: No Action Women's Multivitamin Gummies 200 mcg tablet,chewable 200 mcg PO DAILY Qty: 90 RF: 5 nicotine (polacrilex) 4 mg gum 4 mg BC Q2H Qty: 100 RF: 4 trazodone 50 MG tablet 100 mg PO .QHS RF: 0 sertraline 100 MG tablet 100 mg PO .QHS RF: 0 Discharge Instructions Additional Instructions: Do not take ibuprofen secondary to allergy. Use Percocet 5/325 1 tablet every 6 hours as needed for pain do not take Tylenol when you are taking the Percocet. Take Colace 100 mg twice daily while taking the Percocet Stand Alone Forms: BC Discharge Instruc Activity:: Activity as Tolerated Equipment/Supplies:: No Equipment Needed Diet:: As Tolerated Discharge Orders Discharge Orders: Discharge Order (Routine); Ordered 11/13/19 Ordered By: Jeny Sim DS: Summary Status at Discharge Functional status at discharge: independent ambulation Overall status at discharge: patient is not back to baseline Mental Status: other (Patient is at usual level of mentation) Speech and Movement: speech and movement normal Mood: congruent mood and other (Patient is at usual level of mentation) Affect: normal affect Exam Const General: comfortable Nutritional Appearance: overweight Orientation: awake and oriented x3 HENMT Teeth and gingiva: caries and poor dentition Chest Breast palpation: other (Progress becoming full, no engorgement at this time) Resp Effort & Inspection: normal respiratory effort Auscultation: clear to auscultation bilaterally Cardio Palpation: normal PMI Rhythm: regular rhythm General: deferred Skin General skin exam: no rashes or lesions noted and other (Incision well approximated, small amount of ecchymosis at superior border) Extrem General: normal to inspection, full ROM, normal capillary refill and no clubbing, cyanosis or edema Psych Appearance: disheveled Mental Status: other (Patient is at usual level of mentation) Speech and Movement: speech and movement normal Mood: congruent mood and other (Patient is at usual level of mentation) Affect: normal affect DS: Data Vitals/I&O Vitals and I&O: Vital Signs Temperature 97.7 F 11/10/19 06:39 Pulse 86 11/10/19 15:13 Pulse Rhythm Regular 11/10/19 06:39 Respiratory Rate 16 11/11/19 09:24 Respiratory Effort 11/10/19 06:39 Respiratory Depth Normal 11/10/19 06:39 Respiratory Pattern Normal 11/10/19 06:39 Blood Pressure 123/77 11/10/19 06:39 Pulse Oximetry 98 11/10/19 15:13 Oxygen Delivery Method Room Air 11/10/19 06:39 Oxygen Flow Rate 0 11/10/19 06:39 Pain Level 10 11/12/19 16:32 Data Completed and Pending Labs on day of discharge: Labs from last 24 hours 11/12/19 09:50 WBC 13.48 H RBC 2.80 L Hgb 8.3 L Hct 25.0 L MCV 89.3 MCH 29.6 MCHC 33.2 RDW 13.8 Plt Count 308 MPV 10.0 Immature Gran % 0.3 Neutrophils % 78.2 Lymphocytes % 14.2 Monocytes % 5.3 Eosinophils % 1.9 Basophils % 0.1 Absolute Neutrophils 10.54 H Absolute Lymphocytes 1.91 Absolute Monocytes 0.71 H Absolute Eosinophils 0.26 Absolute Basophils 0.01 PFSH Medical History (Updated 11/13/19 @ 07:59 by Jeny Sim MD) Asthma (Chronic) Cognitive developmental delay (Acute) Depression (Chronic) Patient is known to an [facility]. Has a conveyancer. 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 DOS: initial 09/17/18; removal of hardware and new plate - 01/26/19 Social History (Updated 10/01/19 @ 07:48 by Jeny Sim MD) Smoking/Tobacco Use Status: Current every day Tobacco: How many years used: 11 Alcohol Intake: never Drug use: Daily Substance use type: marijuana (smokes a bowl daily) Household members: significant other and other Details: IVETH Adler What type of physical activity do you participate in: walking Do you feel safe at home: Yes Do you feel safe in your relationship?: Yes History History 1 Para 0 Hx # Term Pregnancies 0 Multiple births 0 Hx # Pregnancies 0 Ectopic pregnancies 0 AB induced 0 Hx Number of Living Children 0 AB spontaneous 0
[2019-11-13] MEDS: Docusate Sodium 100 MG CAP PO (08:54)
== END 2019-11-13 12:00 | disposition designated cancer center or children's hospital (05) | DRG 787 ==
LOC: PDS 06:15 → OBS 10:10
PROVIDERS: Admitting Provider Obstetrics & Gynecology; PCP Pediatrics; Visit Provider Obstetrics & Gynecology
PROC: 10D00Z1 Extraction of Products of Conception, Low, Open Approach (ICD-10-PCS; CPT 59514; principal; 2019-11-10 07:30)
DX: O32.1XX0 Maternal care for breech presentation, not applicable or unspecified (principal); O72.1 Other immediate postpartum hemorrhage; O99.324 Drug use complicating childbirth; Z37.0 Single live birth; Z3A.38 38 weeks gestation of pregnancy; O99.344 Other mental disorders complicating childbirth; O99.334 Smoking (tobacco) complicating childbirth; R05 Cough; D72.829 Elevated white blood cell count, unspecified; F32.9 Major depressive disorder, single episode, unspecified; F17.210 Nicotine dependence, cigarettes, uncomplicated; F81.9 Developmental disorder of scholastic skills, unspecified; F12.90 Cannabis use, unspecified, uncomplicated; Z30.013 Encounter for initial prescription of injectable contraceptive
CPT/HCPCS: 59514; 36415; 85027; 99232; NC; 71046; 81003; 81015; 85025; 87086; 94640; 94668; J0690; J0696; J1050; J2405; J2590; J3010; J3490; J7613

== ENCOUNTER 2020-03-09 10:57 | Outpatient (CLI) | payer MEDICAID, SELFPAY ==
--- NOTE | 2020-03-09 10:45 | DI.RAD_ITS ---
EXAM: XR FOREARM RT CLINICAL HISTORY: f/u TECHNIQUE: COMPARISON: XR forearm RT from 04/21/2019 FINDINGS: Three views were obtained. Previously described osteotomy of the radius with plate and screw fixatio n in place is again noted. There has been further bony remodeling with no change in alignment compar paradise with previous films of April 21, 2019. IMPRESSION:
== END 2020-03-09 11:17 ==
PROVIDERS: PCP Pediatrics; Visit Provider Orthopaedic Surgery
DX: M25.831 Other specified joint disorders, right wrist; S52.601D Unspecified fracture of lower end of right ulna, subsequent encounter for closed fracture with routine healing
CPT/HCPCS: 73090

== ENCOUNTER 2020-08-30 19:10 | Outpatient (REF) | payer MEDICAID, SELFPAY ==
[2020-09-02 23:55] LABS: Patient Race White; SARS-CoV-2 RNA Undetected (Undetected); SARS-CoV-2 Specimen Source Nasal
== END 2020-08-30 19:30 ==
LOC: NCHCN 19:10
PROVIDERS: PCP Pediatrics; Visit Provider Nurse Practitioner Family
DX: Z20.828 Contact with and (suspected) exposure to other viral communicable diseases (principal)
CPT/HCPCS: U0003

== ENCOUNTER 2021-12-25 10:49 | Outpatient (REF) | payer MEDICAID, SELFPAY ==
--- NOTE | 2021-12-25 10:20 | PAPFT_PTH ---
PATIENT: Corrie Chino LOC: [facility] U#:[id number] AGE/SX: 26/F ROOM: RE12/25/[address]: Fabiana Raymond NP : 1995 BED: DIS: 12/25/2021 SPEC #: [id number] RECD: 12/25/21 12:56 STATUS: CLAUDETTE REDana #: [id number] HERLINDA: 12/25/21 10:[address]: Fabiana Raymond NP DEPT: [facility] Cytology RECD BY: Ritika Krueger ENTERED: 12/25/21 12:56 SP TYPE: PAPFT OTHR DR: Avis Britton Tissues: 1 - CX/ENDOCX FOR PAP SMEARS Procedures: PAP THIN PREP/UVM Screening Comments: [id number]
== END 2021-12-25 10:50 | disposition home or self-care (01) ==
LOC: LBN 10:49
PROVIDERS: PCP Pediatrics; Visit Provider Nurse Practitioner Women's Health
DX: Z12.4 Encounter for screening for malignant neoplasm of cervix (principal)
CPT/HCPCS: 88142

== ENCOUNTER 2022-01-10 19:22 | Emergency (ER) | payer MEDICAID, SELFPAY ==
[2022-01-10 19:36] VITALS: BP 122/71; PULSE 85; RESP 16; TEMP 37; O2SAT 99
--- NOTE | 2022-01-10 20:27 | ED.GENADUL_ITS ---
Discharge Plan Disposition Patient Disposition: HOME Condition: Improving Discharge Details Clinical Impression: Depression Primary Care Provider: Avis Britton ED Provider: Rufus Louise Home Meds and New Rx's Prescriptions: Continued medroxyprogesterone 150 mg/mL syringe 150 mg IM [id number] Qty: 1 5RF sertraline 100 MG tablet 150 mg PO HS 0RF quetiapine 25 mg tablet 25 mg PO DAILY 0RF Discharge Instructions Instructions: Depression (ED) Additional Instructions: Please follow-up with your primary care doctor. Please follow through with care plan/safety plan. Return to the emergency department for any worsening symptomatology, and in particular if you have any thoughts of harming herself or harming others. Medical Decision Making 26-year-old female history of bipolar disorder recently started on quetiapine, brought in by home supervisor for worsening aggression, visual hallucination, depression, self cutting, patient calm cooperative no SI no HI, does endorse visual hallucinations that are chronic, self cutting was remote, well-healed excoriated to dorsum of left hand, no evidence of neurovascular or tendinous compromise. No evidence of intoxication trauma or metabolic derangement or infectious process. Is likely primary psychiatric encounter. Patient does want to speak with a psychiatric professional. Will contact mental health screener. And will await recommendations and care plan. Rest comfortably no acute distress. Stable. Calm cooperative. Safety plan made in coordination with mental health screener. Home care instructions and return precautions given. Patient and home health he feels safe going home. HPI General Date/Time Provider Initiated Documentation: 01/10/22 20:00 . HPI Narrative: 26-year-old female history of bipolar disorder presents brought in by home care provider endorses patient has been more violent and unstable since she started quetiapine. Patient dorsals visual hallucination of her partner. Has self cut recently. Denies SI denies HI. Would like psychiatric evaluation Related Data Home Medications Medication Instructions Recorded Confirmed sertraline 100 mg tablet 150 mg PO HS 03/02/18 01/10/22 medroxyprogesterone 150 mg/mL 150 mg IM [id number] #1 ml 01/25/21 01/10/22 intramuscular syringe quetiapine 25 mg tablet 25 mg PO DAILY 01/10/22 01/10/22 Previous Rx's Medication Instructions Recorded medroxyprogesterone 150 mg/mL 150 mg IM [id number] #1 ml 01/25/21 intramuscular syringe Allergies Allergy/AdvReac Type Severity Reaction Status Date / Time ibuprofen Allergy Unknown Hives, Verified 01/10/22 19:40 throat swelling General Stated Complaint: PsychEval KHARI: 2 Review of Systems Narrative: Review of Systems Constitutional: negative Eyes: negative ENT: negative Cardiovascular: negative Respiratory: negative Gastrointestinal: negative : negative Musculoskeletal: negative Skin: negative Neurologic: negative Psych: Visual hallucination, depression, self injury, aggression PFSH All Active Problems (Updated 01/10/22 @ 21:48 by Rufus Louise MD) Encounter for management and injection of injectable progestin contraceptive (Acute) Marijuana user (Acute) Poor dentition (Acute) Cognitive developmental delay (Acute) Depression (Chronic) Patient is known to an [facility]. 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 Medical History Asthma Surgical History History of laparoscopic appendectomy (~03/03/18) Status post primary low transverse section 4 breech presentation not amenable to ECV. 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 He is 57 with 7 adult children What type of physical activity do you participate in: walking Do you feel safe at home: Yes Do you feel safe in your relationship?: Yes Female Reproductive History Menstrual control method: progesterone injection History History 1 Para 1 Hx # Term Pregnancies 1 Multiple births 0 Hx # Pregnancies 0 Ectopic pregnancies 0 AB induced 0 Hx Number of Living Children 1 AB spontaneous 0 Past Pregnancies Del. Date GA/Weeks # Outcome Route Wgt Sex Labor Lgth Anesthes ia Location Prov [facility] 39 No Successful 2523.108 g Male regional MD Esther hemorrhage Delivery Date: Last Updated by: Emi Aparicio LPN for Breech presentation; PP hemorrhage secondary to uterine atony. Exam Narrative Exam Narrative: Physical Examination General: alert, awake, cooperative, resting comfortably, no acute distress HEENT: normocephalic, atraumatic; PERRL, EOM intact, conjunctiva normal; no nasal discharge; moist mucous membranes, oral and pharyngeal mucosa normal, tolerating secretions Neck: supple, trachea midline; full ROM Chest: normal to inspection Respiratory: normal respiratory effort, speaking in full sentences, clear to auscultation, no wheezing, rales or rhonchi Cardiac: regular rate, regular rhythm, S1S2 intact, no murmurs rubs or gallops GI: abdomen soft, non-tender, non-distended; no palpable mass or hepatosplenomegaly Skin: no lesions, rashes or trauma appreciated Neuro: AAOx3, normal speech, moving all extremities Extremities: 4-5 superficial lacerations to dorsum of left hand, hemostatic no foreign body nongaping, flexion extension intact in all fingers no sign of superinfection. Psych: Cooperative, does endorse depression, denies SI or HI, does endorse self cutting Course Vital Signs Vital signs: Vital Signs Temperature 37.0 C 01/10/22 19:36 Pulse 85 01/10/22 19:36 Respiratory Rate 16 01/10/22 19:36 Blood Pressure 122/71 01/10/22 19:36 Pulse Oximetry 99 01/10/22 19:36 Temperature 37.0 C 01/10/22 19:36 Pulse 85 01/10/22 19:36 Respiratory Rate 16 01/10/22 19:36 Blood Pressure 122/71 01/10/22 19:36 Pulse Oximetry 99 01/10/22 19:36 Pain Level 0 01/10/22 19:36 Lab/Test Results Lab/Test Results: Laboratory Tests Range/Units 01/10/22 01/10/22 01/10/22 19:43 19:43 19:43 WBC Cancelled RBC Cancelled Hgb Cancelled Hct Cancelled MCV Cancelled MCH Cancelled MCHC Cancelled RDW Cancelled Plt Count Cancelled MPV Cancelled Immature Gran % Cancelled Neutrophils % Cancelled Band Neutrophils % Cancelled Lymphocytes % Cancelled Atypical Lymphs % Cancelled Monocytes % Cancelled Eosinophils % Cancelled Basophils % Cancelled Metamyelocytes % Cancelled Myelocytes % Cancelled Promyelocytes % Cancelled Other Cells % Cancelled Nucleated RBC % Cancelled Absolute Neutrophils Cancelled Absolute Lymphocytes Cancelled Absolute Monocytes Cancelled Absolute Eosinophils Cancelled Absolute Basophils Cancelled RBC Morphology Cancelled Polychromasia Cancelled Hypochromasia Cancelled Poikilocytosis Cancelled Basophilic Stippling Cancelled Anisocytosis Cancelled Microcytosis Cancelled Macrocytosis Cancelled Spherocytes Cancelled Tear Drop Cells Cancelled Ovalocytes Cancelled Stomatocytes Cancelled Ashraf-[place] Bodies Cancelled Britt Cells/Echinocytes Cancelled Acanthocytes (Spur) Cancelled Schistocytes Cancelled Sodium Cancelled Potassium Cancelled Chloride Cancelled Carbon Dioxide Cancelled Anion Gap Cancelled BUN Cancelled Creatinine Cancelled Estimated GFR/1.73 m2 Cancelled Glucose Cancelled Calcium Cancelled Total Bilirubin Cancelled AST Cancelled ALT Cancelled Alkaline Phosphatase Cancelled Total Protein Cancelled Albumin Cancelled TSH Cancelled Salicylates Cancelled Acetaminophen Cancelled Ethyl Alcohol Cancelled POC- Test(urine) Negative
[2022-01-10 20:38] LABS: *AMPHETAMINES SCREEN URINE Negative (Negative); *BARBITURATES SCREEN URINE Negative (Negative); *BENZODIAZEPINES SCREEN URINE Negative (Negative); Cannabinoids THC Negative (Negative); Cocaine Screen,Urine Negative (Negative); METHADONE URINE SCREEN Negative (Negative); OPIATES URINE SCREEN Negative (Negative); Tricyclic Antidepressants Negative (Negative)
[2022-01-10 20:44] LABS: Bilirubin Negative (Negative); Blood Negative (Negative); Clarity Clear (Clear); Glucose Negative (Negative); Ketones Negative (Negative); Leukocyte Esterase Negative (Negative); Nitrite Negative (Negative); Urobilinogen 0.2 EU/dL (Up TO 0.2); pH 5.5 (5-8)
--- NOTE | 2022-01-11 15:50 | PDOC.MHCN ---
Date of service: 01/10/22 Time of Service: 21:30 Mental Health Crisis Note Presenting Issue How did you arrive at the ED and why did you come: Client arrived to ED via home provider for NSSI. Precipitating Factors Client is denying SI/HI/NSSI. Reports she cut her hand intentionally on Saturday 2.. Client reports her new medication is making her depression symptoms worse, which led her to cut. Disposition BEHAVIOR: Client is calm, cooperative and appropriately engaged in conversation. EYE CONTACT: Client made great eye contact. MOOD: Client describes her mood as okay AFFECT: Broad APPETITE: Not assessed at this time. SLEEP(trouble falling/staying asleep: Not assessed at this time. Plan Cleint is denying SI/HI/NSSI. Client was able to be safety planned home with the assistance of her home provider. Client will be making a follow up with her PCP to discuss a medication change and request a referral for psychiatry. Signature Clinician's Name/Title: Kellen Rodriguez, ESC
== END 2022-01-10 21:53 | disposition home or self-care (01) ==
PROVIDERS: Emergency Provider Emergency Medicine; PCP Pediatrics
DX: F32.A Depression, unspecified (principal); Z91.51 Personal history of suicidal behavior; Z79.899 Other long term (current) drug therapy; R45.6 Violent behavior
CPT/HCPCS: 80053; 80307; 81025; 99283; 80320; 80329; 81003; 84443; 85025

== ENCOUNTER 2022-01-22 11:01 | Emergency (ER) | payer MEDICAID, SELFPAY ==
[2022-01-22 11:07] VITALS: BP 124/77; PULSE 88; RESP 16; TEMP 37.1; O2SAT 97
[2022-01-22 11:37] LABS: Bilirubin Negative (Negative); Blood Negative (Negative); Clarity Clear (Clear); Glucose Negative (Negative); Ketones Negative (Negative); Leukocyte Esterase Trace (Negative); Nitrite Negative (Negative); Specific Gravity 1.015 (1.005-1.025); Urobilinogen 0.2 EU/dL (Up TO 0.2)
[2022-01-22 11:45] LABS: Bacteria Rare HPF (Negative); C & S Indicated? Yes; Casts Negative LPF (Negative); Crystals Negative HPF (Negative); Epithelial Cells Rare HPF (Negative); Mucus Negative (Negative); RBC Negative HPF (0-2); WBC 0-2 HPF (0-5)
--- NOTE | 2022-01-22 11:45 | ED.GENADUL_ITS ---
Discharge Plan Disposition Patient Disposition: HOME Condition: Stable Discharge Details Clinical Impression: Depression, Intentional self-harm, Aggressive behavior Primary Care Provider: Meredith Araujo ED Provider: Cami Whitten Home Meds and New Rx's Prescriptions: Continued medroxyprogesterone 150 mg/mL syringe 150 mg IM [id number] Qty: 1 5RF sertraline 100 MG tablet 150 mg PO HS 0RF quetiapine 25 mg tablet 25 mg PO DAILY 0RF Discharge Instructions Instructions: Depression (ED) Additional Instructions: Plan is for you to stay with mom for the time being until alternative arrangements can be made. Safety plan remains in place, this includes no self-harm, behavior and continue to follow-up with mental health. You may reach out to them at any time at [phone]. I have asked her care management to ensure that you are able to be followed up with the primary care locally in the next week. I also advised that you have difficulty with transportation. 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 If you develop thoughts of self-harm, suicidal ideation, thoughts of harming others please seek care urgently once again. Referrals: Avis Britton [ [facility] STAFF PHYSICIAN] - Discharge Data Discharge Date/Time-TO BE ENTERED AT DEPARTURE: 01/22/22 14:05 Medical Decision Making Patient is a pleasant 26-year-old female presented with chief complaint of self- harm and question of suicidal attempt. Patient has history of cognitive delay, bipolar and depression. She was seen here recently, last seen on 01/10/2022 for depression. She states that recently she lost custody of her child which has greatly increased her anxiety/depression. States that she has not seen her psychologist recently. Has one at her typical residence but is not able to go back there now. Became agressive with staff and was not able to control herself. She states that her mother is her guardian and that she will likely live with her. Today, she reports that she attempted to self harm. Scratched the dorsal aspect of left hand with industrial nurse for her phone. States this was not in suicide attempt but more self harm, asking for help. She demonstrates forward thinking, want to be able to be with her son. On exam, patient appears anxious. Offered anxiolytic which patient would like. She does not have hallucinations, SI, HI. She has very superficial abrasions left hand with no break in the skin. Patient in blue paper scrubs. She has one to one sitter. As there is concern, particularly with her housing situation, for possible ipatient admission, will obtain baseline labs. Will have patient evaluated by MH. Patient was evaluated by mental health. Mental health provider did not feel the patient is acutely suicidal or homicidal. Patient does have a safe place to go with her mom. Plan for patient to be discharged into her mother's care. Discussed safety plan with patient and her mother at length. Encouraged that she f/u with her therapist, psychologist as soon as possible. She is cocnerned about transportation. I have asked our healthcare manager to assist with follow up appointments. Strict return precautions given. All questions and cocnerns were addressed, they are in agreement with this plan. Patient discharged home in care of her mother. HPI General Date/Time Provider Initiated Documentation: 01/22/22 11:45 . Limitations to Documentation: no limitations . Information obtained by: patient, RN notes reviewed and old records reviewed . History of Present Illness 26 year old F presents to the emergency department with the chief complaint of thoughts of self harm, increased anxiety, described as moderate (reports she does not want to commit suicide, has forward thinking) and similar to prior episodes, Quality is described as aching (reports aching in hand from self inflicted superficial abrasion), Patient started experiencing this week(s) (has had progressive worsening of symptoms with recent increasee in social stressors) and it has been intermittent. improves with No relieving factors improve symptom(s), Other factors that worsen symptoms (increase social stressors) . Patient notes no other symptoms.. Patient did receive the following treatments prior to arrival, none Related Data Home Medications Medication Instructions Recorded Confirmed sertraline 100 mg tablet 150 mg PO HS 03/02/18 01/22/22 medroxyprogesterone 150 mg/mL 150 mg IM [id number] #1 ml 01/25/21 01/22/22 intramuscular syringe quetiapine 25 mg tablet 25 mg PO DAILY 01/10/22 01/22/22 Previous Rx's Medication Instructions Recorded medroxyprogesterone 150 mg/mL 150 mg IM [id number] #1 ml 01/25/21 intramuscular syringe Allergies Allergy/AdvReac Type Severity Reaction Status Date / Time ibuprofen Allergy Unknown Hives, Verified 01/22/22 11:14 throat swelling General Stated Complaint: PsychEval KHARI: 2 Review of Systems Constitutional Constitutional: Reports as per HPI, Denies fatigue, Denies fever(s), Denies headache(s) and Denies weakness ENT Ears, Nose, Mouth, and Throat: Denies headache(s) Cardiovascular Cardiovascular: Reports as per HPI, Denies chest pain, Denies dyspnea and Denies dyspnea on exertion Respiratory Respiratory: Reports as per HPI, Denies cough, Denies dyspnea and Denies dyspnea on exertion Musculoskeletal Musculoskeletal: Denies abnormal gait Integumentary/Breasts Skin/Breast: Reports as per HPI Neurologic Neurologic: Denies abnormal movements, Denies abnormal speech, Denies abnormal gait, Denies headache(s), Denies paresthesias and Denies weakness Endocrine Endocrine: Denies fatigue PFSH All Active Problems (Updated 01/22/22 @ 13:57 by WALLY Flores) Intentional self-harm (Acute) Aggressive behavior (Acute) Encounter for management and injection of injectable progestin contraceptive (Acute) Marijuana user (Acute) Poor dentition (Acute) Cognitive developmental delay (Acute) Depression (Chronic) Patient is known to an [facility]. 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 Medical History Asthma Surgical History History of laparoscopic appendectomy (~03/03/18) Status post primary low transverse section 4 breech presentation not amenable to ECV. 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 He is 55 with 7 adult children What type of physical activity do you participate in: walking Do you feel safe at home: Yes Do you feel safe in your relationship?: Yes Female Reproductive History Menstrual control method: progesterone injection History History 1 Para 1 Hx # Term Pregnancies 1 Multiple births 0 Hx # Pregnancies 0 Ectopic pregnancies 0 AB induced 0 Hx Number of Living Children 1 AB spontaneous 0 Past Pregnancies Del. Date GA/Weeks # Outcome Route Wgt Sex Labor Lgth Anesthes ia Location Prov Complic 39 No Successful 2523.108 g Male regional MD Esther hemorrhage Delivery Date: Last Updated by: Emi Aparicio LPN for Breech presentation; PP hemorrhage secondary to uterine atony. Exam Const General: cooperative, healthy appearing, no acute distress, well developed, well groomed and anxious Nutritional Appearance: average body habitus and well nourished Orientation: alert and awake Eyes General: appearance normal, both eyes and all related structures Resp Effort & Inspection: normal respiratory effort, able to speak in complete sentences and no respiratory distress Auscultation: clear to auscultation bilaterally, no rales, no rhonchi and no wheezes Cardio Rate: regular rate Rhythm: regular rhythm Heart Sounds: S1 normal and S2 normal Skin Trauma: abrasion (superficial pink abrasion, no break in the skin, dorsal left hand) Neuro General: patient alert and patient awake Cognition: normal cognition Speech: speech normal Gait: normal gait Psych Appearance: grossly normal and well kempt Mental Status: mental status grossly normal Speech and Movement: speech and movement normal Mood: anxious mood Affect: anxious affect Attitude: cooperative Thought Process: normal Thought Content: normal and suicidality (forward thinking, thoughts of superfi cial self harm but not actively suicid) Insight: limited Judgment: limited Course Vital Signs Vital signs: Vital Signs Temperature 37.1 C 01/22/22 11:07 Pulse 88 01/22/22 11:07 Respiratory Rate 16 01/22/22 11:07 Blood Pressure 124/77 01/22/22 11:07 Pulse Oximetry 97 01/22/22 11:07 Temperature 37.1 C 01/22/22 11:07 Temperature Source Skin 01/22/22 11:07 Pulse 88 01/22/22 11:07 Respiratory Rate 16 01/22/22 11:07 Respiratory Effort 01/22/22 11:07 Blood Pressure 124/77 01/22/22 11:07 Blood Pressure Position Sitting 01/22/22 11:07 Pulse Oximetry 97 01/22/22 11:07 Oxygen Delivery Method Room Air 01/22/22 11:07 Oxygen Flow Rate 0 01/22/22 11:07 Pain Level 10 01/22/22 11:07 Lab/Test Results Lab/Test Results: Laboratory Tests Range/Units 01/22/22 11:20 Urine Color (Yellow) Yellow Urine Clarity (Clear) Clear Urine pH (5-8) 7.0 Ur Specific [place] (1.005-1.025) 1.015 Urine Protein (Negative) mg/dL Negative Urine Ketones (Negative) mg/dL Negative Urine Blood (Negative) Negative Urine Nitrite (Negative) Negative Urine Bilirubin (Negative) Negative Urine Urobilinogen (Up TO 0.2) EU/dL 0.2 Ur Leukocyte Esterase (Negative) Trace H Urine Glucose (Negative) mg/dL Negative POC- Test(urine) Negative
[2022-01-22 11:49] LABS: *AMPHETAMINES SCREEN URINE Negative (Negative); *BARBITURATES SCREEN URINE Negative (Negative); *BENZODIAZEPINES SCREEN URINE Negative (Negative); Cannabinoids THC Negative (Negative); Cocaine Screen,Urine Negative (Negative); METHADONE URINE SCREEN Negative (Negative); OPIATES URINE SCREEN Negative (Negative)
[2022-01-22 11:51] LABS: Tricyclic Antidepressants Negative (Negative)
[2022-01-22 12:22] LABS: Abs Immature Grans 0.03 10^3/uL (0.0-0.06); Absolute Basophil Count 0.01 10^3/uL (0.0-0.2); Absolute Eosinophil Count 0.02 10^3/uL (0.0-0.7); Absolute Lymphocyte Count 2.38 10^3/uL (1.2-3.4); Absolute Monocyte Count 0.27 10^3/uL (0.1-0.8); Absolute Neutrophil Count 5.62 10^3/uL (1.2-6.7); Basophils % 0.1; Eosinophils % 0.2; HCT 46.9 % (36.0-46.0); HGB 15.2 g/dL (11.2-15.7); Immature Grans % 0.4; Lymphocytes % 28.6; MCHC 32.4 % (32.0-36.0); MCV 86.4 fL (80-95); MPV 9.6 fL (8.0-11.0); Monocytes % 3.2; Neutrophils % 67.5; Nucleated RBC 0 %; Platelet Count 258 10^3/uL (130-400); RBC 5.43 10^6/uL (3.93-5.22); RDW 14.3 % (11.7-14.6); RDW-SD 45.7 fL; WBC 8.33 10^3/uL (4.4-10.8)
--- NOTE | 2022-01-22 12:34 | NUR.NOTE ---
Nursing Note: Angela mother legal guardian [phone]
[2022-01-22 12:48] LABS: ALT 15 U/L (14-59); AST 7 U/L (15-37); Albumin 4.6 g/dL (3.4-5.0); Alkaline Phosphatase 96 U/L (46-116); Anion Gap 10.8 mmol/L (3-11); BUN 10 mg/dL (7-18); Bilirubin, Total 0.4 mg/dL (0.2-1.0); CO2 25.2 mmol/L (21.0-32.0); CREATININE 0.9 mg/dL (0.55-1.02); Calcium 9.6 mg/dL (8.5-10.1); Chloride 106 mmol/L (98-107); ETHANOL BLOOD < 3.0 mg/dL (<10); Glucose 95 mg/dL (74-106); Potassium 3.9 mmol/L (3.5-5.1); Sodium 142 mmol/L (136-145); TSH (W/Ref FT4) 1.59 uIU/mL (0.36-3.74); Total Protein 8.9 g/dL (6.4-8.2)
[2022-01-22 12:49] LABS: Salicylate 3.7 mg/dL (<2.8)
[2022-01-22 12:50] LABS: Acetaminophen < 2 ug/mL (10-30)
--- NOTE | 2022-01-22 14:00 | NUR.NOTE ---
Nursing Note: Referral given to Care Management for self harm/aggressive behavior within next week with PCP. Vijaya Prater
--- NOTE | 2022-01-22 15:37 | CMACTNOTE_ITS ---
- If Service Date Differs Date of service: 01/22/22 Time of Service: 15:37 Care Management Activity Note Corrie is seen in the ED today for depression and intentional self-harm. CM is asked to help Corrie get a follow up appointment with her PCP. A phone call to Helen, Corrie's mom and guardian, reveals that the PCP listed in Corrie's chart is incorrect. Per mom, Corrie has established care at [facility]. CM calls the [facility] to confirm that Corrie is a patient and to request that a follow up appointment be scheduled next week.
--- NOTE | 2022-01-22 16:29 | PDOC.MHCN ---
Date of service: 01/22/22 Time of Service: 16:29 Mental Health Crisis Note Presenting Issue How did you arrive at the ED and why did you come: Pt arrived to ED today via her mother after engaging in NSSI because I got mad. Pt stated that she cut her hand with her phone battery recharger. She showed this clinician and it was a minor scratch that was not bleeding nor did it look infected. Precipitating Factors Pt denied SI HI and NSSI. She denied intent, access and plan. Pt is not showing any signs of delusions. Disposition BEHAVIOR: Pt is cooperative and mildly engaged. She is friendly and goal directed. EYE CONTACT: Eye contact is fair. MOOD: Pt reported her mood has been awful staitng she has been angry a lot. AFFECT: Pt's affect is flat. APPETITE: Pt reported good. SLEEP(trouble falling/staying asleep: Pt reported good. Plan Pt wishes to go home with her mother. Pt's mother is amendable to this. At this time the Pt appears to be struggling with emotional stabilization and she and her mother were encouraged to follow up with the Pt's team at [facility] as well, the attending at [facility] will encourage them to follow up with their PCP to address medication issues. Pt was encouraged to engaged in self-care activities daily. Signature Clinician's Name/Title: Livia Gurrola MS, [facility] Emergency Services Clinician, [facility]
--- NOTE | 2022-01-24 14:50 | ED.FU.B_ITS ---
Follow Up Plan: Patient urine culture from 01/22 grew mixed gram-positive doron. I was able to review her UA which showed mild leuks, rare squamous epithelial and bacteria. No WBCs on UA. No nitrates on UA. I was able to contact patient at her home and she is feeling well without urinary symptoms such as frequency cloudiness smelly urine or dysuria. No infectious symptomatology at this time. Likely this represents a false positive from a contaminated catch. Patient counseled to seek medical attention if she develops any signs of infection or urinary s ymptomatology. Patient understands.
== END 2022-01-22 14:05 | disposition home or self-care (01) ==
LOC: ER 14:06
PROVIDERS: Emergency Provider Physician Assistant; PCP Nurse Practitioner Family
DX: F32.A Depression, unspecified (principal); R45.6 Violent behavior; Z91.51 Personal history of suicidal behavior
CPT/HCPCS: 80053; 80307; 81025; 99283; 80320; 80329; 81003; 81015; 84443; 85025; 87086

== ENCOUNTER 2022-02-20 11:58 | Outpatient (REF) | payer MEDICAID, SELFPAY ==
--- NOTE | 2022-02-20 09:20 | PAPFT_PTH ---
PATIENT: Corrie Chino LOC: [facility] U#:[id number] AGE/SX: 26/F ROOM: RE02/20/[address]: Meredith Araujo : 1995 BED: DIS: 02/20/2022 SPEC #: [id number] RECD: 02/20/22 17:52 STATUS: CLAUDETTE REDana #: [id number] HERLINDA: 02/20/22 09:[address]: Meredith Araujo DEPT: [facility] Cytology RECD BY: Ritika Krueger Tissues: 1 - CX/ENDOCX FOR PAP SMEARS Procedures: PAP THIN PREP/UVM Screening HPV DNA PROBE Comments: [id number]
== END 2022-02-20 11:59 | disposition home or self-care (01) ==
LOC: NCHCN 11:58
PROVIDERS: PCP Nurse Practitioner Family; Visit Provider Nurse Practitioner Family
DX: Z12.4 Encounter for screening for malignant neoplasm of cervix (principal); R87.610 Atypical squamous cells of undetermined significance on cytologic smear of cervix (ASC-US); Z11.51 Encounter for screening for human papillomavirus (HPV)
CPT/HCPCS: 88142; 87624

== ENCOUNTER 2022-04-25 19:07 | Emergency (ER) | payer MEDICAID, SELFPAY ==
[2022-04-25 19:18] VITALS: BP 115/69; PULSE 86; RESP 18; TEMP 36.4; O2SAT 98
--- NOTE | 2022-04-25 19:22 | ED.GENADUL_ITS ---
Discharge Plan Discharge Details Primary Care Provider: Meredith Araujo ED Provider: Lachelle Campuzano Home Meds and New Rx's Prescriptions: No Action medroxyprogesterone 150 mg/mL syringe See Rx Instructions .ROUTE .COMPLEX Qty: 1 4RF Dose Instruction: INJECT 1ML INTRAMUSCULARLY EVERY 3 MONTHS Rx Instructions: INJECT 1ML INTRAMUSCULARLY EVERY 3 MONTHS sertraline 100 mg tablet 100 mg PO HS Label Comments: 03/21/22- per pt report now on 100 mg (pt reports provider Xuan from [facility]) quetiapine 25 mg tablet 25 mg PO DAILY HPI General Date/Time Provider Initiated Documentation: 04/25/22 19:22 . Related Data Home Medications Medication Instructions Recorded Confirmed quetiapine 25 mg tablet 25 mg PO DAILY 01/10/22 03/21/22 medroxyprogesterone 150 mg/mL See Rx Instructions .Route 03/19/22 03/21/22 intramuscular syringe .COMPLEX #1 mL sertraline 100 mg tablet 100 mg PO HS 03/21/22 03/21/22 Previous Rx's Medication Instructions Recorded medroxyprogesterone 150 mg/mL See Rx Instructions .Route 03/19/22 intramuscular syringe .COMPLEX #1 mL Allergies Allergy/AdvReac Type Severity Reaction Status Date / Time ibuprofen Allergy Unknown Hives, Verified 03/21/22 12:29 throat swelling General KHARI: 2 PFSH All Active Problems (Updated 03/21/22 @ 13:07 by Fabiana Raymond NP) Bipolar disorder (Acute) Encounter for management and injection of injectable progestin contraceptive (A cute) Marijuana user (Acute) Poor dentition (Acute) Cognitive developmental delay (Acute) Depression (Chronic) Patient is known to an [facility]. 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 Medical History Asthma Surgical History History of laparoscopic appendectomy (~03/03/18) Status post primary low transverse section 4 breech presentation not amenable to ECV. 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 He is 55 with 7 adult children What type of physical activity do you participate in: walking Do you feel safe at home: Yes Do you feel safe in your relationship?: Yes Female Reproductive History Menstrual control method: progesterone injection History History 1 Para 1 Hx # Term Pregnancies 1 Multiple births 0 Hx # Pregnancies 0 Ectopic pregnancies 0 AB induced 0 Hx Number of Living Children 1 AB spontaneous 0 Past Pregnancies Del. Date GA/Weeks # Outcome Route Wgt Sex Labor Lgth Anesthes ia Location [facility] 39 No Successful 2523.108 g Male ray Santana MD hemorrhage Delivery Date: Last Updated by: Emi Aparicio LPN for Breech presentation; PP hemorrhage secondary to uterine atony.
== END 2022-04-26 03:44 ==
LOC: ER 19:19
PROVIDERS: Emergency Provider Physician Assistant; PCP Nurse Practitioner Family
DX: Z53.21 Procedure and treatment not carried out due to patient leaving prior to being seen by health care provider (principal)